=== PATIENT | female | born 1935 | race Caucasian/White ===

== ENCOUNTER → 2017-09-08 10:58 | Day surgery (SDC) | payer MEDICARE, OTHER, SELFPAY ==
[2017-09-05 09:28] VITALS: BMI 28.9
--- NOTE | 2017-09-08 11:49 | PCM.OP.BLANK ---
Operative Report Date of Procedure: 09/08/17 DC cardioversion 82-year-old lady with a history of coronary artery disease atrial fibrillation/ flutter on anticoagulation who developed recurrent atrial flutter. Patient was brought to the cardiac catheterization lab in the noninvasive suite. After appropriate informed consent was obtained the patient was also seen by Dr. García of the critical care division. Appropriate consultation was sought. Patient was administered 40 mg of intravenous propofol. Anterior posterior pads were applied and 200 J of synchronized DC cardioversion energy were applied with prompt reversal to sinus rhythm. Patient tolerated the procedure well. Postoperative EKG demonstrated normal sinus rhythm with a rate of 59 bpm. Conclusion Succesful DC cardioversion from atrial fibrillation. Continue beta-jeff Continue channel jeff Continue amiodarone
--- NOTE | 2017-09-08 12:02 | PCM.OP.BLANK ---
Operative Report Date of Procedure: 09/08/17 CONSCIOUS SEDATION REPORT DATE OF SERVICE: September 08, 2017 BRIEF HISTORY OF PRESENT ILLNESS: The patient is an 82-year-old female who presents to [facility] for elective outpatient cardioversion due to underlying atrial fibrillation. The patient's last surface echocardiogram revealed an ejection fraction of approximately 40%. The patient did undergo a prior cardioversion in January 2017, during which time 40 mg of propofol was utilized to achieve an appropriate level of sedation. PHYSICAL EXAMINATION: VITAL SIGNS: Reviewed and were acceptable. GENERAL: The patient is an elderly female, in no apparent distress, speaking in full sentences. HEENT: Normocephalic, atraumatic. Mucous membranes are moist and pink. Good mouth opening noted. Trachea is midline. Good neck mobility. CHEST: S1, S2 irregularly irregular. No murmurs, rubs or gallops were noted. LUNGS: Clear to auscultation bilaterally without appreciable wheezes, rales or rhonchi. ABDOMEN: Soft, nontender, nondistended. Positive bowel sounds. EXTREMITIES: There is no clubbing, cyanosis or edema. ASA Class: II DESCRIPTION OF PROCEDURE: After confirmation of informed consent, the patient's anesthesia plan was reviewed in detail. Propofol was chosen. Risks and benefits were reviewed and the patient agreed to proceed. At 1143, the patient was given 40 mg of propofol. The patient achieved an appropriate level of sedation and was given a 200 joule synchronized cardioversion by Dr. Harris at the bedside. This was successful in achieving normal sinus rhythm. The patient was monitored until 1153, at which time she reached her baseline mental status and function. The patient tolerated the procedure well. COMPLICATIONS: None ESTIMATED BLOOD LOSS: None RECOMMENDATIONS: Okay to recover in usual fashion. Code Visit 9xxxx: Other Procedure See Report
== END ==
PROVIDERS: Family Provider Family Medicine; PCP Family Medicine; Visit Provider Internal Medicine Cardiovascular Disease
DX: I48.0 Paroxysmal atrial fibrillation (principal); I48.92 Unspecified atrial flutter; I25.10 Atherosclerotic heart disease of native coronary artery without angina pectoris; I12.9 Hypertensive chronic kidney disease with stage 1 through stage 4 chronic kidney disease, or unspecified chronic kidney disease; N18.9 Chronic kidney disease, unspecified; Z87.19 Personal history of other diseases of the digestive system; Z85.3 Personal history of malignant neoplasm of breast; Z86.2 Personal history of diseases of the blood and blood-forming organs and certain disorders involving the immune mechanism; Z96.652 Presence of left artificial knee joint; Z98.61 Coronary angioplasty status; Z95.828 Presence of other vascular implants and grafts; Z79.01 Long term (current) use of anticoagulants; Z79.899 Other long term (current) drug therapy
CPT/HCPCS: 92960; 93005; J7040

== ENCOUNTER 2017-12-24 09:32 | Emergency (ER) | payer MEDICARE, OTHER, SELFPAY ==
[2017-12-24] VITALS (12 sets, daily range): BP systolic 123–176; BP diastolic 71–118; PULSE 52–121; RESP 12–23; TEMP 36.4; O2SAT 94–100; BMI 29.0
--- NOTE | 2017-12-24 09:44 | ED.DCSUM_ITS ---
History of Present Illness Chief Complaint: Palpitations Informant: Patient Onset: Yesterday - PM Context: Sudden Onset Timing: Continuous Quality: racing/skipping Location: chest Current Severity: Gone Maximum Severity: Moderate Worsened by: nothing Relieved by: nothing Associated Symptoms: lightheadeness episodically. No chest discomfort or sob or syncope. Narrative: States she usually feels when she is in atrial fibrillation, similar to what she fell last night. She has been cardioverted she thinks 3 times out of atrial fibrillation and has had a cardiac radiofrequency ablation for that, in addition to currently being on amiodarone and Xarelto, and Cardizem, she took them all today. She does not feel palpitations, racing, or lightheadedness right now. She states she feels okay but she knows she is having a fast heart rate because she checks her pulse and right before she left to come to ER, it was 120. Prior similar symptoms: Yes - Past Medical History (1) Iron deficiency anemia Status: Chronic (2) Atrial fibrillation Status: Chronic (3) Coronary artery disease Status: Chronic Comment: Status post stent (4) History of cancer of left breast Status: Chronic (5) History of cardiac radiofrequency ablation Status: Chronic Comment: 12/31/13 EP study,SVT ablation, pulmonary vein isolation per Dr. Mazariegos @ [facility]; 06/22/2014 EP and atrial flutter ablation and PV isolation per Dr. Mazariegos @ [facility] (6) Hypertension Status: Chronic (7) Stented coronary artery Status: Chronic Comment: PTCA and ALEXIS of LAD @ [place] per Dr. Grover Richard 02/19/2010; 50% stenosis of left cx Past Medical History - Allergies and Home Meds Allergies/Adverse Reactions: Allergies etodolac Allergy (Verified 12/24/17 09:36) Unknown hydrocodone [From Vicodin] Allergy (Verified 12/24/17 09:36) CONFUSION codeine Adverse Reaction (Verified 12/24/17 09:36) Nausea/Vom/Diarrhea Home Medications: Home Medications Medication Instructions Recorded Atorvastatin Calcium 20 mg PO DAILY 01/24/17 Brimonidine Tartrate/Timolol 1 drp EACH EYE BID 01/24/17 [Combigan Eye Drops] Calcium Carbonate/Vitamin D3 1 ea PO DAILY 01/24/17 [Caltrate 600 Plus D3 Tablet] Latanoprost 0.005% [Xalatan 1 drp EACH EYE DAILY 01/24/17 Opthalmic] Multivit-Min/Iron/Folic/Lutein 1 ea PO DAILY 01/24/17 [Centrum Silver Women Tablet] Acetaminophen [Tylenol Tablet] 650 mg PO Q6H PRN PRN tab 01/27/17 Amiodarone HCl [Cordarone] 200 mg PO DAILY #30 tab 01/27/17 Furosemide [Lasix] 20 mg PO DAILY PRN 08/29/17 diltiazem ER 120 mg 120 mg PO .q day cap 09/03/17 capsule,extended release 12 hr rivaroxaban 20 mg tablet 20 mg PO QDAY 09/03/17 metoprolol tartrate 50 mg tablet 50 mg PO BID #180 tab 10/06/17 Primary Care Physician: Dillon Salgado MD [Primary Care Provider] - Surgical History: herniorrhaphy, total knee arthroplasty Smoking Status: Never smoker - Family History Maternal Family History: Family History (Last Reviewed 10/23/17 @ 11:03 by Shelton Harris MD) Father No family history of coronary artery disease Family History: Reports: No pertinent history Paternal Family History: Family History (Last Reviewed 10/23/17 @ 11:03 by Shelton Harris MD) Father No family history of coronary artery disease Family History: Reports: No pertinent history Review of Systems All systems negative except as indicated General: Reports: - - Intermittent lightheadedness Cardiovascular: Reports: Palpitations, Heart racing Musculoskeletal: Reports: Swelling - Bilateral lower extremity, chronic, stable Physical Exam Vital Signs/Narrative: Vital Signs Temp Pulse Resp BP Pulse Ox 12/24/17 09:33 97.6 F L 121 H 18 157/99 H 94 General: Well nourished, Well developed, - - well-appearing, nad. Conversive. Head: Normocephalic, Atraumatic Eyes: Perrl, EOMI ENT: Moist mucous membranes, No rhinorrhea Neck: Supple, Nontender, No JVD Cardiovascular: Regular rhythm, No murmurs, Tachycardia Respiratory: No distress, CTA bilaterally, Chest nontender Abdomen: Soft, Nontender, Nondistended, Normal bowel sounds Back: Nontender, Normal Inspection Extremities: Nontender, Edema - Trace bilateral lower extremity, symmetric Skin: Normal color, No rash Neurological: Alert, Oriented x3, Cranial nerves II-XII grossly intact, Normal Strength, Normal Sensation, Normal Gait Psychological: Normal affect Diagnostic/Tx/Re-eval - Rhythm Strip Rhythm Strip: Sinus Tach Rate: 120 Ectopy: None - EKG 1 Interpretation: No Acute Injury Pattern, Sinus Tachycardia - 120, - - narrow QRS. borderline 1st degree AVB. post cardioversion Interpretation: Sinus Rhythm - 56, No Acute Injury Pattern - Medical Decision Making Since the patient has had episodes of atrial flutter in the past, looking at her initial EKG that appeared to show sinus tachycardia with a borderline prolonged MO interval, I discussed with the patient my recommendation to administer adenosine to see if she was in an atypical a flutter or if this was some different type of supraventricular tachycardia. She was amenable after we discussed this, she was given 6 mg adenosine bolus, she tolerated it well and it appeared to show sinus tachycardia. It was definitely not a flutter. She went back to a tachycardia at 120 and basically did not change this rate throughout her ER visit, despite giving her 1 dose of metoprolol 5 mg, and a liter of IV fluid as she had been n.p.o. all morning. Basic workup showed no abnormal labs, her renal insufficiency was actually better than recent, and her chest x-ray unremarkable. A loop recorder was noted. I discussed with Dr. Harris who came and evaluated the rhythm strip, EKG, and patient. We agreed that this could be some type of atrial tachycardia. He advised cardioverting her electrically. The patient was amenable to this. This went without complication and was completely successful in cardioverting her to a sinus rhythm at 56. She feels better. She recovered from etomidate 10 mg without difficulty. She is stable for discharge home and will follow up with Dr. Harris as an outpatient. Procedures Procedure(s): 1. --Procedural sedation. N.p.o. over 6 hours. Etomidate 10 mg. Nasal cannula and manager cardiac cath in place during entire procedure. Recovered without complication/event. 2. --Electric cardioversion. Synchronized cardioversion performed with 200 J synchronized energy. Performed ?1. Critical care time (excluding procedures): Not including procedures - 32 min ED Disposition - Plan for ED Patient: Disposition: Home or Assisted Living Chief Complaint: Palpitations Diagnosis: Atrial tachycardia Instructions: ED Tachycardia Pat PSVT Referrals: Shelton Harris MD [STAFF PHYSICIAN] - 1 Week
--- NOTE | 2017-12-24 10:00 | EKG12_ITS ---
Test Reason : PALPS Blood Pressure : / mmHG Vent. Rate : 120 BPM Atrial Rate : 120 BPM P-R Int : 192 ms QRS Dur : 094 ms QT Int : 330 ms P-R-T Axes : 000 052 001 degrees QTc Int : 466 ms Sinus tachycardia Nonspecific ST abnormality Abnormal ECG Confirmed by VLADIMIR CAMACHO, MAILE ([id number]), editorial specialist SNOW VANCE ([id number]) on 12/26/2017 1:27:54 PM Referred By: TANK Confirmed By:MAILE GILBERT MD
[2017-12-24 10:13] LABS: Absolute Lymphocyte Count 0.75 X10^3/ul (0.83-4.51); Absolute Neutrophil Count 6.8 X10^3/uL (2.0-7.7); Basophil# 0.02 X10^3/uL; Basophil% 0.2 % (0-1); Eosinophil# 0.03 X10^3/uL; Eosinophils% 0.4 % (0-5); Hemoglobin 14.2 g/dl (12.0-15.0); Lymphocyte # 0.75 X10^3/ul (4.0); Lymphocyte % 9.2 % (19-41); Mean Corpuscular Hgb 31.6 pg (27.0-32.0); Mean Corpuscular Volume 95.6 fL (81-99); Mean Platelet Vol. 11.1 fl (6.2-12.0); Monocyte# 0.63 X10^3/uL; Monocyte% 7.7 % (0-10); Neutrophil # 6.75 X10^3/uL (2.7-7.7); Neutrophil % 82.4 % (47-70); POSITIVE COUNT NO; POSITIVE DIFFERENTIAL NO; POSITIVE MORPHOLOGY NO; Platelet Count 236 K/mm3 (150-450); RBC Distribution Width CV 16.5 % (11.6-14.6); RBC Distribution Width SD 56.4 fl (35.1-43.9); White Blood Count 8.2 K/mm3 (4.4-11.0)
[2017-12-24 10:21] LABS: Anion Gap 7 (5-15); BUN 18 mg/dL (7-18); BUN/Creat Ratio 14.8 RATIO (10-20); Calcium,Total 9.4 mg/dL (8.5-10.1); Chloride 98 mmol/L (98-107); Creatinine, Serum 1.22 mg/dL (0.55-1.02); EST Glomerular Filtration Rate 45 mL/min (>60); Est Glom Filt Rate - Afr Amer 55 mL/min (>60); Estimated Creatinine Clearance 35.77 ml/min; Glucose 129 mg/dL (74-106); Potassium 4.1 mmol/L (3.5-5.1); Sodium Level 134 mmol/L (136-145)
[2017-12-24] MEDS: Adenosine 6 MG/2 ML Syringe IV (10:22)
--- NOTE | 2017-12-24 10:45 | EKGRS_ITS ---
Test Reason : REPEAT Blood Pressure : / mmHG Vent. Rate : 056 BPM Atrial Rate : 056 BPM P-R Int : 222 ms QRS Dur : 088 ms QT Int : 470 ms P-R-T Axes : 077 023 020 degrees QTc Int : 453 ms Sinus bradycardia with 1st degree A-V block Nonspecific ST abnormality Abnormal ECG Confirmed by VLADIMIR CAMACHO, MAILE ([id number]), script editor SNOW VANCE ([id number]) on 12/26/2017 1:30:00 PM Referred By: TANK Confirmed By:MAILE GILBERT MD
--- NOTE | 2017-12-24 10:52 | NURSING ---
128 OBS CP ASHELFAH
--- NOTE | 2017-12-24 11:03 | RAD_ITS ---
STUDY: X-RAY CHEST REASON FOR EXAM: Female, 82 years old. A. Fib. Fatigue. TECHNIQUE: PA and lateral views of the chest. COMPARISON: May 28, 2017 and August 29, 2017 FINDINGS: The lungs remain hyperinflated. There is no new focal consolidation. There are stable prominent interstitial markings present. There are EKG leads overlying the thorax. There is stable mild cardiomegaly. There is a hiatal hernia present. Normal visualized pulmonary arteries. Normal visualized aortic arch and descending thoracic aorta. There is demineralization of the osseous structures. The bones are diffusely demineralized. Normal visualized ribs, clavicles, and shoulders. There are surgical clips within the left axilla. There is no demonstrated abnormality of the visualized soft tissue structures of the upper abdomen. RAD/Chest PA and Lateral IMPRESSION: Stable examination demonstrating no acute cardiopulmonary process. Electronically Signed: Annabel Mahoney MD at 12:17 EDT Tel , Service support ,
[2017-12-24 11:26] LABS: Bacteria 0 SEEN /hpf (None Seen); Mucous, Urine 0 SEEN /hpf (<or=2+); Squamous Epithelial Cells - UA 0 SEEN /hpf (5-10); White Blood Cells 0 SEEN /hpf (0-5)
[2017-12-24] MEDS: Metoprolol Tartrate 5 MG/5 ML Vial IV (11:33)
[2017-12-24 11:35] LABS: Color, Urine Yellow (Yellow); Glucose, Dipstick Normal (Normal); Ketone-Dipstick Negative (Negative); Leukocyte Esterase-Dipstick Negative /ul (Negative); Nitrite-Dipstick Negative (Negative); Occult Blood-Urine 25 /ul (Negative); Protein-Dipstick Negative (Negative); Specific Gravity, Urine 1.015 (1.002-1.030); Urine Bilirubin Dipstick Negative (Negative); Urine Clarity Clear (Clear); Urine Urobilinogen Normal (Normal)
[2017-12-24 11:40] LABS: Red Blood Cells-Urine 0-5 SEEN /hpf (0-5)
== END 2017-12-24 14:00 | disposition home or self-care (01) ==
PROVIDERS: Emergency Provider Emergency Medicine; Family Provider Family Medicine; PCP Family Medicine
DX: I47.1 Supraventricular tachycardia (principal); M79.89 Other specified soft tissue disorders; D50.9 Iron deficiency anemia, unspecified; I48.91 Unspecified atrial fibrillation; I25.10 Atherosclerotic heart disease of native coronary artery without angina pectoris; I10 Essential (primary) hypertension; N28.9 Disorder of kidney and ureter, unspecified; Z85.3 Personal history of malignant neoplasm of breast; Z98.890 Other specified postprocedural states; Z95.5 Presence of coronary angioplasty implant and graft; Z79.899 Other long term (current) drug therapy
CPT/HCPCS: 36591; 71046; 80048; 81001; 85025; 93005; 96361; 96374; 96375; 99285; J7030; J7040; A4216; J0153

== ENCOUNTER → 2018-04-02 10:49 | Outpatient (CLI) | payer MEDICARE, OTHER, SELFPAY | PROVIDERS: Family Provider Family Medicine; PCP Family Medicine; Visit Provider Internal Medicine Cardiovascular Disease | DX: I48.0 Paroxysmal atrial fibrillation (principal) | CPT/HCPCS: 93306 ==

== ENCOUNTER 2018-04-16 11:50 | Emergency (ER) | payer MEDICARE, OTHER, SELFPAY ==
[2018-04-16 11:51] VITALS: BP 165/101; PULSE 117; RESP 17; TEMP 36.1; O2SAT 95; BMI 29.3
--- NOTE | 2018-04-16 12:07 | EKG12_ITS ---
Test Reason : PALPS Blood Pressure : / mmHG Vent. Rate : 113 BPM Atrial Rate : 113 BPM P-R Int : 190 ms QRS Dur : 098 ms QT Int : 360 ms P-R-T Axes : 000 073 031 degrees QTc Int : [address] depression, consider subendocardial injury Abnormal ECG Confirmed by NESSA ABRAMS ([id number]), editor map SNOW VANCE ([id number]) on 04/21/2018 2:35:02 PM Referred By: CURLY Confirmed By:NESSA ABRAMS
[2018-04-16] MEDS: 0.9% Normal Saline 1,000 ML 1000 ML IV (12:25)
[2018-04-16 12:33] LABS: Absolute Lymphocyte Count 0.65 X10^3/ul (0.83-4.51); Absolute Neutrophil Count 5.5 X10^3/uL (2.0-7.7); Basophil# 0.02 X10^3/uL; Basophil% 0.3 % (0-1); Eosinophil# 0.02 X10^3/uL; Eosinophils% 0.3 % (0-5); Hematocrit 41.2 % (37-47); Hemoglobin 13.4 g/dl (12.0-15.0); Lymphocyte # 0.65 X10^3/ul (4.0); Lymphocyte % 9.7 % (19-41); Mean Corp Hgb Conc 32.5 g/gl (32-36); Mean Corpuscular Hgb 31.4 pg (27.0-32.0); Mean Corpuscular Volume 96.5 fL (81-99); Mean Platelet Vol. 10.8 fl (6.2-12.0); Monocyte# 0.49 X10^3/uL; Monocyte% 7.3 % (0-10); Neutrophil % 82.4 % (47-70); POSITIVE COUNT NO; POSITIVE DIFFERENTIAL NO; POSITIVE MORPHOLOGY NO; Platelet Count 211 K/mm3 (150-450); RBC Distribution Width CV 15.4 % (11.6-14.6); RBC Distribution Width SD 53.9 fl (35.1-43.9); Red Blood Count 4.27 M/mm3 (4.2-5.4); White Blood Count 6.7 K/mm3 (4.4-11.0)
--- NOTE | 2018-04-16 12:51 | ED.DCSUM_ITS ---
- ER Visit Summary Date of Service: 04/16/18 Chief Complaint: Elevated pulse History of Present Illness: The patient is a 82 F with history of atrial fibrillation presents to the emergency department with elevated pulse. Patient is on Xarelto [place] regulation. She states last night, she felt as if her pulse was elevated. She did not document a pulse, but when she took it, did feel high. She states it happened again today. She states it was in the 1 teens. She denies chest pain or shortness of breath. She states that she has had atrial fibrillation and required cardioversion before in the past. She denies any fevers or chills. She denies any chest pain or trouble breathing. She has been compliant with her medications. She states that just over a month ago, her metoprolol dose was decreased because she was having bradycardia. Physical Examination: Vital signs reviewed General: Well-nourished, well-developed Head: Normocephalic, atraumatic Eyes: Pupils equal and reactive, extraocular muscles intact Neck, supple, no lymphadenopathy Heart: Regular rate and rhythm Respiratory: No distress, clear bilaterally Abdomen: Soft, nontender, nondistended, no peritoneal signs Back: Nontender Extremities: Nontender, no edema, no cords Skin: Normal color no rash Neuro: Alert and oriented, no focal or lateralizing deficits Test Results: [] Emergency Department Course and Treatment: EKG was done on patient arrival. It does show sinus tachycardia. There is no evidence of atrial fibrillation or rapid ventricular response. There was no acute ischemic change. IV was established. Patient was given IV fluids. I did obtain screening labs which are unremarkable. With reviewing the patient's medications, she did have her metoprolol dose decreased recently. I do suspect that may be the underlying cause of her tachycardia. She was given IV metoprolol and had decrease of her rate into the 90s. Again, this was a sinus rhythm. I had made attempts to discuss this with her knitting machine mechanic. At this time, I do feel that the most appropriate thing would be to increase her metoprolol dose at least at night until she can be seen as an outpatient. She is comfortable this plan of care. She has no chest pain. She is no dyspnea. She wants to attempt outpatient therapy and I feel this is reasonable. Treatment Plan: [] Disposition: Discharge Impression: Tachycardia This note was generated with tibditation software. It may contain incorrect words, spelling, and punctuation that were not noted in review of the chart prior to signing ED Disposition - Plan for ED Patient: Chief Complaint: Palpitations Instructions: ED Palpitations Referrals: Shelton Harris MD [STAFF PHYSICIAN] -
[2018-04-16 12:57] LABS: ALB/GLOB Ratio 0.8 RATIO (0.9-2.4); AST(SGOT) 18 U/L (15-37); Alanine Aminotransfer ALT/SGPT 22 U/L (13-56); Albumin, Serum 3.5 g/dL (3.2-5.0); Alkaline Phosphatase 91 U/L (45-117); Anion Gap 10 (5-15); BUN 22 mg/dL (7-18); BUN/Creat Ratio 21.2 RATIO (10-20); Calcium,Total 8.8 mg/dL (8.5-10.1); Chloride 101 mmol/L (98-107); Creatinine, Serum 1.04 mg/dL (0.55-1.02); EST Glomerular Filtration Rate 54 mL/min (>60); Est Glom Filt Rate - Afr Amer 65 mL/min (>60); Estimated Creatinine Clearance 43.52 ml/min; Globulin 4.5 g/dL (2.2-4.2); Glucose 120 mg/dL (74-106); Potassium 4.1 mmol/L (3.5-5.1); Sodium Level 137 mmol/L (136-145)
[2018-04-16] MEDS: Metoprolol Tartrate 5 MG/5 ML Vial IV (13:27)
[2018-04-16 13:28] VITALS: BP 183/114; PULSE 112; RESP 18; O2SAT 97
[2018-04-16 15:02] VITALS: BP 129/74; PULSE 62; RESP 16; O2SAT 97
== END 2018-04-16 15:03 | disposition home or self-care (01) ==
LOC: ED 12:25
PROVIDERS: Emergency Provider Emergency Medicine; Family Provider Family Medicine; PCP Family Medicine
DX: R00.2 Palpitations (principal); R00.0 Tachycardia, unspecified; I48.91 Unspecified atrial fibrillation; I25.10 Atherosclerotic heart disease of native coronary artery without angina pectoris; I10 Essential (primary) hypertension; E78.00 Pure hypercholesterolemia, unspecified; Z79.01 Long term (current) use of anticoagulants; Z79.899 Other long term (current) drug therapy
CPT/HCPCS: 80053; 84484; 85025; 93005; 96361; 96374; 99284; A4216

== ENCOUNTER → 2018-06-09 09:02 | Outpatient (CLI) | payer MEDICARE, OTHER, SELFPAY ==
[2018-06-09 10:22] LABS: International Normalized Ratio 1.4; Prothrombin Time (Protime)PT. 17.2 SECONDS (11.7-14.9)
[2018-06-09 10:25] LABS: Anion Gap 6 (5-15); BUN 25 mg/dL (7-18); BUN/Creat Ratio 21.2 RATIO (10-20); Calcium,Total 8.5 mg/dL (8.5-10.1); Chloride 100 mmol/L (98-107); Creatinine, Serum 1.18 mg/dL (0.55-1.02); EST Glomerular Filtration Rate 47 mL/min (>60); Est Glom Filt Rate - Afr Amer 57 mL/min (>60); Glucose 98 mg/dL (74-106); Potassium 4.5 mmol/L (3.5-5.1); Sodium Level 137 mmol/L (136-145)
== END ==
PROVIDERS: Family Provider Family Medicine; PCP Family Medicine; Referring Provider Nurse Practitioner Family; Visit Provider Nurse Practitioner Family
DX: I48.91 Unspecified atrial fibrillation (principal)
CPT/HCPCS: 36415; 80048; 85610

== ENCOUNTER → 2018-11-05 14:32 | Outpatient (CLI) | payer MEDICARE, OTHER, SELFPAY ==
[2018-08-18 11:10] VITALS: BMI 29.3
[2018-11-05 15:31] LABS: Anion Gap 5 (5-15); BUN 26 mg/dL (7-18); BUN/Creat Ratio 22.2 RATIO (10-20); Calcium,Total 8.7 mg/dL (8.5-10.1); Chloride 103 mmol/L (98-107); Creatinine, Serum 1.17 mg/dL (0.55-1.02); EST Glomerular Filtration Rate 47 mL/min (>60); Est Glom Filt Rate - Afr Amer 57 mL/min (>60); Glucose 104 mg/dL (74-106); Potassium 4.6 mmol/L (3.5-5.1); Sodium Level 140 mmol/L (136-145)
== END ==
PROVIDERS: Family Provider Family Medicine; PCP Family Medicine; Referring Provider Internal Medicine Cardiovascular Disease; Visit Provider Internal Medicine Cardiovascular Disease
DX: I48.91 Unspecified atrial fibrillation (principal); I48.92 Unspecified atrial flutter
CPT/HCPCS: 36415; 80048

== ENCOUNTER 2018-11-09 10:36 | Day surgery (SDC) | payer MEDICARE, OTHER, SELFPAY ==
[2018-08-18 11:10] VITALS: BMI 29.3
[2018-11-06 09:57] VITALS: BMI 29.3
--- NOTE | 2018-11-09 09:55 | PCM.HP.BLA ---
Problem List (1) Atrial flutter Status: Chronic History and Physical Date of Admission: 11/09/18 HPI Details: YAEL TRIPP, is a 83 F who presents today for a scheduled cardioversion. She had called our office on 11/03 with concerns over palpitations. She was noted to be in atrial flutter with a HR of 116. Her metoprolol was increased to 100 mg BID. As she has been on a factor Xa, she was scheduled for a cardioversion today. She has a history of coronary artery disease status post angioplasty and stenting of a high-grade lesion in her LAD in 2009, atrial fibrillation status post cardioversion and ablation in December 2013, NITHYA cardioversion in January 2017, May 2017, and August 2017. Patient was being set up for a repeat cardioversion in June 2018. Her pre-evaluation EKG showed a sinus bradycardia and thus the cardioversion was canceled. She is aware of her faster HR with being slightly more SOB. She also notes that her HR is higher on her BP monitor. Intake Vital Signs: see hospital documentation Allergies etodolac Allergy (Verified 08/18/18 11:20) Nausea hydrocodone [From Vicodin] Allergy (Verified 08/18/18 11:20) CONFUSION codeine Adverse Reaction (Verified 08/18/18 11:20) Nausea/Vom/Diarrhea Medications Atorvastatin Calcium 20 mg PO DAILY 01/24/17 [History Confirmed 08/18/18] Brimonidine Tartrate/Timolol [Combigan Eye Drops] 1 drp EACH EYE BID 01/24/17 [History Confirmed 08/18/18] Calcium Carbonate/Vitamin D3 [Caltrate 600 Plus D3 Tablet] 1 tab PO DAILY 01/24/17 [History Confirmed 08/18/18] Latanoprost 0.005% [Xalatan Opthalmic] 1 drp EACH EYE DAILY 01/24/17 [History Confirmed 08/18/18] Multivit-Min/Iron/Folic/Lutein [Centrum Silver Women Tablet] 1 tab PO DAILY 01/24/17 [History Confirmed 08/18/18] furosemide 20 mg tablet 20 mg PO DAILY PRN #90 tab 03/31/18 [Rx Confirmed 08/18/18] diltiazem CD 120 mg capsule,extended release 24 hr 120 mg PO DAILY #90 cap 04/03/18 [Rx Confirmed 08/18/18] Rivaroxaban [Xarelto] 20 mg PO QDAY 04/16/18 [History Confirmed 08/18/18] amiodarone 200 mg tablet 200 mg PO DAILY #90 tab 05/05/18 [Rx Confirmed 08/18/18] metoprolol tartrate 75 mg tablet 75 mg PO BID #60 tab 08/18/18 [Rx Confirmed 08/18/18] Ejection fraction %: 55 to 59 PFSH Medical History Atrial flutter (Chronic) History of cancer of left breast (Chronic) Atrial fibrillation (Chronic) Atherosclerotic heart disease of [place] coronary artery without angina pectoris (Chronic) Acute bronchitis (Acute) Pharyngitis, acute (Acute) Atrial fibrillation with RVR (Acute) Hypertension (Chronic) Atrial fibrillation and flutter (Chronic) Coronary artery disease (Chronic) Microcytic anemia (Acute) Iron deficiency anemia (Chronic) History of breast cancer (Chronic) Palpitations (Chronic) Arthritis (Chronic) Surgical History History of cardiac radiofrequency ablation (Chronic) Stented coronary artery (Chronic) History of left heart catheterization (Chronic) History of left knee replacement (Chronic) History of loop recorder (Chronic) History of lumpectomy of left breast (Chronic) History of hernia repair (Resolved) History of left hip replacement (Resolved) History of right knee joint replacement (Resolved) Family History Father No family history of coronary artery disease Social History Smoking Status: Never smoker alcohol intake: current alcohol intake frequency: holidays/special occasions only Alcohol type: wine caffeine: Yes Type: coffee Number of servings: 1 ROS Const Const: Negative for fatigue, weakness, body ache, fever(s) or chills ENT ENT: Negative for dizziness Cardio Chest Pain: No Palpitations: yes Edema: None Muscle aches with walking: None Resp Respiratory: Negative for SOB with activity, SOB at rest, SOB orthopnea\SOB lying down or paroxysmal nocturnal dyspnea GI GI: Negative nausea, black,tarry stools, bright, red blood in stools or vomiting blood/hematemesis : Negative for hematuria or frequent nighttime urination/ nocturia Musc Musc: Negative for muscle aches/ myalgia Skin Skin: Negative non-healing lesions or rash Neuro Neuro: Negative for weakness, dizziness, lightheadedness, near syncope, syncope or orthostatic symptoms Endo Endo: Negative for fatigue Allergy Allergy/Immunology: Negative for rash Cardiology Exam Const Appearance: cooperative, healthy appearing, comfortable and no acute distress Nutritional Appearance: average body habitus and well nourished Orientation: alert, awake and oriented x3 Head Head: normal to inspection Ears: hearing grossly normal bilaterally Nose: external nose normal Face and Sinus: face symmetric Mouth: oral mucosae normal Eyes General: appearance normal, both eyes and all related structures Eyelids: eyelids normal EOM: EOM intact bilaterally Neck Neck: no JVD and normal visual inspection Carotids: normal carotid upstroke Chest Chest inspection: normal inspection of the chest and normal respiratory effort; negative cough Auscultation: Bilateral: Clear to Auscultation Cardio Rate: tachycardic Rhythm: irregularly irregular Heart sounds: S1 normal, S2 normal and normal, physiologic split S2; negative rub, gallop or murmur GI GI: normal to inspection Neuro General: alert, awake, oriented x3 and CN's II-XI intact bilaterally Skin Skin: no rashes or lesions noted Extremities Pulses: Normal: Right Posterior Tibial Pulse, Left Posterior Tibial Pulse, Right Radial Pulse, Left Radial Pulse Lower Extremity Edema: None: Bilateral Psych Psychological: normal affect Assessment & Plan 1. Paroxysmal atrial fibrillation I48.0 She will undergo a cardioversion today, she will follow up next week in the office for a repeat EKG. 2. Atherosclerosis of [place] coronary artery of [place] heart without angina pectoris I25.10 PTCA and ALEXIS of LAD @ [place] per Dr. Grover Richard 02/19/2010; 50% stenosis of left cx Her heart catheterization February 2010 resulted in angioplasty and stenting to her LAD and showed LCx with mild disease. Her echocardiogram in March 2018 showed improved ejection fraction of 55%. We will continue to monitor this. We will not make any medication regimen changes and will continue risk factor modification. 3. Essential hypertension I10 We will continue to monitor this. We will not make any medication regimen changes.
--- NOTE | 2018-11-09 10:03 | HP.PCM_ITS ---
Problem List (1) Atrial flutter Status: Chronic History and Physical Date of Admission: 11/09/18 HPI Details: YAEL TRIPP, is a 83 F who presents today for a scheduled cardioversion. She had called our office on 11/03 with concerns over palpitations. She was noted to be in atrial flutter with a HR of 116. Her metoprolol was increased to 100 mg BID. As she has been on a factor Xa, she was scheduled for a cardioversion today. She has a history of coronary artery disease status post angioplasty and stenting of a high-grade lesion in her LAD in 2009, atrial fibrillation status post cardioversion and ablation in December 2013, NITHYA cardioversion in January 2017, May 2017, and August 2017. Patient was being set up for a repeat cardioversion in June 2018. Her pre- evaluation EKG showed a sinus bradycardia and thus the cardioversion was canceled. She is aware of her faster HR with being slightly more SOB. She also notes that her HR is higher on her BP monitor. Intake Vital Signs: see hospital documentation Allergies etodolac Allergy (Verified 08/18/18 11:20) Nausea hydrocodone [From Vicodin] Allergy (Verified 08/18/18 11:20) CONFUSION codeine Adverse Reaction (Verified 08/18/18 11:20) Nausea/Vom/Diarrhea Medications Atorvastatin Calcium 20 mg PO DAILY 01/24/17 [History Confirmed 08/18/18] Brimonidine Tartrate/Timolol [Combigan Eye Drops] 1 drp EACH EYE BID 01/24/17 [History Confirmed 08/18/18] Calcium Carbonate/Vitamin D3 [Caltrate 600 Plus D3 Tablet] 1 tab PO DAILY 01/24/17 [History Confirmed 08/18/18] Latanoprost 0.005% [Xalatan Opthalmic] 1 drp EACH EYE DAILY 01/24/17 [History Confirmed 08/18/18] Multivit-Min/Iron/Folic/Lutein [Centrum Silver Women Tablet] 1 tab PO DAILY 01/24/17 [History Confirmed 08/18/18] furosemide 20 mg tablet 20 mg PO DAILY PRN #90 tab 03/31/18 [Rx Confirmed 08/18/18] diltiazem CD 120 mg capsule,extended release 24 hr 120 mg PO DAILY #90 cap 04/03/18 [Rx Confirmed 08/18/18] Rivaroxaban [Xarelto] 20 mg PO QDAY 04/16/18 [History Confirmed 08/18/18] amiodarone 200 mg tablet 200 mg PO DAILY #90 tab 05/05/18 [Rx Confirmed 03/29] metoprolol tartrate 75 mg tablet 75 mg PO BID #60 tab 08/18/18 [Rx Confirmed 08/18/18] Ejection fraction %: 55 to 59 PFSH Medical History Atrial flutter (Chronic) History of cancer of left breast (Chronic) Atrial fibrillation (Chronic) Atherosclerotic heart disease of [place] coronary artery without angina pectoris (Chronic) Acute bronchitis (Acute) Pharyngitis, acute (Acute) Atrial fibrillation with RVR (Acute) Hypertension (Chronic) Atrial fibrillation and flutter (Chronic) Coronary artery disease (Chronic) Microcytic anemia (Acute) Iron deficiency anemia (Chronic) History of breast cancer (Chronic) Palpitations (Chronic) Arthritis (Chronic) Surgical History History of cardiac radiofrequency ablation (Chronic) Stented coronary artery (Chronic) History of left heart catheterization (Chronic) History of left knee replacement (Chronic) History of loop recorder (Chronic) History of lumpectomy of left breast (Chronic) History of hernia repair (Resolved) History of left hip replacement (Resolved) History of right knee joint replacement (Resolved) Family History Father No family history of coronary artery disease Social History Smoking Status: Never smoker alcohol intake: current alcohol intake frequency: holidays/special occasions only Alcohol type: wine caffeine: Yes Type: coffee Number of servings: 1 ROS Const Const: Negative for fatigue, weakness, body ache, fever(s) or chills ENT ENT: Negative for dizziness Cardio Chest Pain: No Palpitations: yes Edema: None Muscle aches with walking: None Resp Respiratory: Negative for SOB with activity, SOB at rest, SOB orthopnea\SOB lying down or paroxysmal nocturnal dyspnea GI GI: Negative nausea, black,tarry stools, bright, red blood in stools or vomiting blood/hematemesis : Negative for hematuria or frequent nighttime urination/ nocturia Musc Musc: Negative for muscle aches/ myalgia Skin Skin: Negative non-healing lesions or rash Neuro Neuro: Negative for weakness, dizziness, lightheadedness, near syncope, syncope or orthostatic symptoms Endo Endo: Negative for fatigue Allergy Allergy/Immunology: Negative for rash Cardiology Exam Const Appearance: cooperative, healthy appearing, comfortable and no acute distress Nutritional Appearance: average body habitus and well nourished Orientation: alert, awake and oriented x3 Head Head: normal to inspection Ears: hearing grossly normal bilaterally Nose: external nose normal Face and Sinus: face symmetric Mouth: oral mucosae normal Eyes General: appearance normal, both eyes and all related structures Eyelids: eyelids normal EOM: EOM intact bilaterally Neck Neck: no JVD and normal visual inspection Carotids: normal carotid upstroke Chest Chest inspection: normal inspection of the chest and normal respiratory effort; negative cough Auscultation: Bilateral: Clear to Auscultation Cardio Rate: tachycardic Rhythm: irregularly irregular Heart sounds: S1 normal, S2 normal and normal, physiologic split S2; negative rub, gallop or murmur GI GI: normal to inspection Neuro General: alert, awake, oriented x3 and CN's II-XI intact bilaterally Skin Skin: no rashes or lesions noted Extremities Pulses: Normal: Right Posterior Tibial Pulse, Left Posterior Tibial Pulse, Right Radial Pulse, Left Radial Pulse Lower Extremity Edema: None: Bilateral Psych Psychological: normal affect Assessment & Plan 1. Paroxysmal atrial fibrillation I48.0 She will undergo a cardioversion today, she will follow up next week in the office for a repeat EKG. 2. Atherosclerosis of [place] coronary artery of [place] heart without angina pectoris I25.10 PTCA and ALEXIS of LAD @ [place] per Dr. Grover Richard 02/19/2010; 50% stenosis of left cx Her heart catheterization February 2010 resulted in angioplasty and stenting to her LAD and showed LCx with mild disease. Her echocardiogram in March 2018 showed improved ejection fraction of 55%. We will continue to monitor this. We will not make any medication regimen changes and will continue risk factor modifi cation. 3. Essential hypertension I10 We will continue to monitor this. We will not make any medication regimen changes.
--- NOTE | 2018-11-09 13:16 | PCM.OP.PRO ---
Procedure Report Date of Procedure: 11/09/18 DC cardioversion. 83-year-old lady with a history of atrial tachyarrhythmia. Patient had been on anticoagulation for at least 3 weeks prior to this evaluation. Patient was seen by Dr. Poe of the critical care division. Informed consent was obtained. Anterior-posterior pads were applied. The patient was then administered 40 mg of intravenous propofol. 200 J of synchronized DC cardioversion energy were applied with prompt reversal to sinus rhythm. Postoperative EKG confirmed the same. Patient tolerated the procedure well. Conclusion: Successful DC cardioversion from atrial tachyarrhythmia to sinus rhythm. Plan continue current medical therapy.
--- NOTE | 2018-11-09 15:14 | PRO.PCM_ITS ---
Problem List (1) Atrial fibrillation and flutter Status: Chronic (2) Coronary artery disease Status: Chronic Comment: Status post stent (3) History of breast cancer Status: Chronic Comment: Status post lumpectomy (4) History of cancer of left breast Status: Chronic (5) History of cardiac radiofrequency ablation Status: Chronic Comment: 12/31/13 EP study,SVT ablation, pulmonary vein isolation per Dr. Mazariegos @ [facility]; 06/22/2014 EP and atrial flutter ablation and PV isolation per Dr. Mazariegos @ [facility] (6) History of left heart catheterization Status: Chronic Comment: 02/08/[address] Harris @ [facility]>PTCA and ALEXIS of LAD @ [place] (7) Hypertension Status: Chronic Qualifiers: Hypertension type: essential hypertension Qualified Code(s): I10 - Essential (primary) hypertension (8) Iron deficiency anemia Status: Chronic Procedure Report Date of Procedure: 11/09/18 - Conscious sedation CONSCIOUS SEDATION REPORT BRIEF HISTORY OF PRESENT ILLNESS: The patient is an 83-year-old female who presented to [facility] for an elective outpatient cardioversion due to underlying atrial fibrillation. The patient reports no PO intake since midnight. The patient does not have a history of obstructive sleep apnea. The patient reports no history of smoking and COPD. The patient denies any recent constitutional symptoms such as fevers, chills, nausea or vomiting. The patient denies previous anesthetic complications. Patient's last known ejection fraction was 55%. Patient did have a cardioversion by Dr. García on 09/08/2017 and this documentation was reviewed. PHYSICAL EXAMINATION: VITAL SIGNS: Reviewed and were acceptable. GENERAL: The patient is a female, in no apparent distress, speaking in full sentences. HEENT: Normocephalic, atraumatic. Mucous membranes are moist and pink. Good mouth opening noted. Trachea is midline. Good neck mobility. MP III CHEST: S1, S2 irregularly irregular. No murmurs, rubs or gallops were noted. LUNGS: Clear to auscultation bilaterally without appreciable wheezes, rales or rhonchi. ABDOMEN: Soft, nontender, nondistended. Positive bowel sounds. EXTREMITIES: There is no clubbing, cyanosis or edema. ASA Class: II DESCRIPTION OF PROCEDURE: After confirmation of informed consent, the patient's anesthesia plan was reviewed in detail. Propofol was chosen. Risks and benefits were reviewed and the patient agreed to proceed. At 1:06 PM, the patient was given 40 mg of propofol. The patient achieved an appropriate level of sedation and received 1 attempt synchronized cardioversion, at [address] Harris at the bedside. This was successful in achieving normal sinus rhythm. The patient was monitored until 1:14 PM, at which time the patient reached their baseline mental status and function. The patient tolerated the procedure well. COMPLICATIONS: None ESTIMATED BLOOD LOSS: None RECOMMENDATIONS: Okay to recover in usual fashion. Code Visit 9xxxx: Other Procedure See Report - 20199 -8 minutes conscious sedation
== END 2018-11-09 14:16 | disposition home or self-care (01) ==
LOC: CLSP 10:37
PROVIDERS: Family Provider Family Medicine; PCP Family Medicine; Referring Provider Internal Medicine Cardiovascular Disease; Visit Provider Internal Medicine Cardiovascular Disease
DX: I48.0 Paroxysmal atrial fibrillation (principal); I25.10 Atherosclerotic heart disease of native coronary artery without angina pectoris; I10 Essential (primary) hypertension; D50.9 Iron deficiency anemia, unspecified; M19.90 Unspecified osteoarthritis, unspecified site; Z85.3 Personal history of malignant neoplasm of breast; Z79.899 Other long term (current) drug therapy
CPT/HCPCS: 92960; 93005; J7040

== ENCOUNTER 2018-12-10 13:28 | Emergency (ER) | payer MEDICARE, OTHER, SELFPAY ==
[2018-11-06 09:57] VITALS: BMI 29.3
[2018-12-10 13:29] VITALS: BP 159/83; PULSE 52; RESP 16; TEMP 36.4; O2SAT 95; BMI 27.8
--- NOTE | 2018-12-10 14:07 | CT_ITS ---
STUDY: CT ABDOMEN AND PELVIS WITHOUT CONTRAST REASON FOR EXAM: Female, 83 years old. Pain RADIATION DOSAGE (If Supplied By Facility): DLP = ( 670.37 ) mGycm TECHNIQUE: Transaxial images were obtained from the dome of the diaphragm to the symphysis pubis without oral contrast, and without intravenous contrast. Sagittal and coronal images were reconstructed. Individualized dose optimization techniques were used for this CT. COMPARISON: None. FINDINGS: Evaluation of the abdominal viscera is limited in the absence of intravenous contrast. The visualized lung bases are clear. The visualized portions of the heart and pericardium are within normal limits. Gallstones are present. The liver demonstrates an unremarkable unenhanced appearance. The spleen is normal in size. The pancreas demonstrates an unremarkable unenhanced appearance. The adrenal glands are within normal limits. There are no obstructing renal stones. There is no hydronephrosis. There is a large ventral hernia. There is no bowel obstruction or inflammation. The appendix is not visualized, but there are no findings to suggest acute appendicitis. The aorta is normal in caliber. There is no abdominal or pelvic free air, free fluid, fluid collection or lymphadenopathy. There are no destructive osseous lesions. There is prominent disc space loss at the L4-L5 level with grade 2 spondylolisthesis. There is an age-indeterminate compression fracture of the T12 vertebral body. Left hip arthroplasty present. Ventral hernia repair present. CT/Abdomen/Pelvis without Cont IMPRESSION: No acute abdominal or pelvic pathology demonstrated on this noncontrast CT. Large ventral hernia. Cholelithiasis. Prominent degenerative changes with grade 2 spondylolisthesis at the L4-L5 level. Age-indeterminate compression fracture of the T12 vertebral body. Electronically Signed: Dillon López, at 16:37 EDT Tel , Service support ,
--- NOTE | 2018-12-10 14:12 | ED.DCSUM_ITS ---
- ER Visit Summary Date of Service: 12/10/18 Chief Complaint: [] Left-sided back pain since Easter problem History of Present Illness: The patient is a 83 F [] history of Xarelto related to A. fib A. fib that is been stable she indicates the day after [place] she got out of bed and since then she having pain to the left low back paralumbar area, the pain is persisted is worse when she walks and she moves she had no bowel or bladder complaints or changes, she is a history of chronic intermittent abdominal pain and nausea etiology which is unclear but she is been worked up as an outpatient for this. She went to see Dr. Tavera orthopedics office yesterday, she was seen by 1 of his assists by her history, the x-rays were done that showed arthritis DJD, she was started on prednisone punch pack she took prednisone punch pack yesterday that made her more nauseated it did not completely resolve her pain she presents to the emergency department complaining of persistent left-sided paralumbar back pain and worsening of her nausea. She is had decreased p.o. intake because of the nausea her bowel and bladder habits have been normal but notes sometimes having to strain to have a BM, but notes she did have bowel movements today and normal urinary habits, she has a chronic anterior abdominal wall umbilical hernia that is unchanged, again she is not in A. fib but she has history of paroxysmal A. fib so she is currently on Xarelto that limits her medication options Physical Examination: [] General, no distress resting comfortably HEENT is generally unremarkable The neck is supple no adenopathy Cardiovascular, regular rate and rhythm Lungs, clear bilateral Abdomen, soft nontender anterior abdominal wall hernia is very soft periumbilical superiorly around 12 to 2 o'clock position Back is unremarkable the midline back shows really nothing acute she is a vague pain to the left paralumbar area she is able to stand and walk without difficulty she can knee bend without difficulty, she can walk around the room with no pain no radiation the pain is restricted to the left paralumbar area no radiation to the legs no paresthesias no signs of cauda equina Extremities, no clubbing cyanosis or edema Neurologic, awake alert answering questions appropriately moving all 4 ext remities Test Results: [] Emergency Department Course and Treatment: [] Had a long conversation with the patient we discussed the limitations offered by the Xarelto therapy she has multiple allergies possibly to [place] but not Percocet, she is suggesting that the prednisone made her chronic nausea worse we discussed initially comes s topping the prednisone and treating her for her lumbar back pain with Percocet and then she indicated she spoke with her daughter who is a nurse who wants her evaluated for her recurrent abdominal pain and worsening nausea At this time patient will undergo screening labs CT IV fluids pain management The patient's CBC chemistry panel labs UA are all generally unremarkable, the CT shows nothing acute shows some DJD L4 level questionable age indeterminate T12 fracture no bowel obstruction no signs of anything acute Explained all of the above to the family they understand at this time they will follow-up with the orthopedic service for her back pain, they will follow-up with a GI service she seen in the past for her GI elements and the nausea and the difficulty with bowel movements she will continue to use her stool softeners, she will use Tylenol for pain to be given Percocet which she is not allergic to as a rescue medicine and return for change in symptoms Treatment Plan: [] Disposition: [] Home stable Impression: [] Left lumbar back pain, nausea intermittent abdominal discomfort This note was generated with [employer] software. It may contain incorrect words, spelling, and punctuation that were not noted in review of the chart prior to signing ED Disposition - Plan for ED Patient: Referrals: Dillon Salgado MD [Primary Care Provider] -
[2018-12-10 14:49] LABS: Bacteria 0 SEEN /hpf (None Seen); Mucous, Urine 0 SEEN /hpf (<or=2+); Red Blood Cells-Urine 0 SEEN /hpf (0-5); Squamous Epithelial Cells - UA 0 SEEN /hpf (5-10); White Blood Cells 0 SEEN /hpf (0-5)
[2018-12-10 14:50] LABS: Color, Urine Yellow (Yellow); Glucose, Dipstick Normal (Normal); Ketone-Dipstick Negative (Negative); Leukocyte Esterase-Dipstick 25 /ul (Negative); Nitrite-Dipstick Negative (Negative); Occult Blood-Urine 150 /ul (Negative); Protein-Dipstick 100 mg/dl (Negative); Specific Gravity, Urine 1.025 (1.002-1.030); Urine Bilirubin Dipstick Negative (Negative); Urine Clarity Clear (Clear); Urine Urobilinogen Normal (Normal)
[2018-12-10] MEDS: Ondansetron 4 MG/2 ML Vial IV (15:20)
[2018-12-10] MEDS: 0.9% Normal Saline 1,000 ML 125 ML IV (15:20)
[2018-12-10 15:21] LABS: Absolute Lymphocyte Count 0.34 X10^3/ul (0.83-4.51); Absolute Neutrophil Count 8.9 X10^3/uL (2.0-7.7); Hematocrit 40.8 % (37-47); Hemoglobin 13.4 g/dl (12.0-15.0); Lymphocyte # 0.34 X10^3/ul (4.0); Lymphocyte % 3.5 % (19-41); Mean Corp Hgb Conc 32.8 g/gl (32-36); Mean Corpuscular Hgb 31.8 pg (27.0-32.0); Mean Corpuscular Volume 96.7 fL (81-99); Monocyte# 0.48 X10^3/uL; Monocyte% 4.9 % (0-10); Neutrophil # 8.87 X10^3/uL (2.7-7.7); Neutrophil % 91.5 % (47-70); Platelet Count 226 K/mm3 (150-450); RBC Distribution Width CV 13.8 % (11.6-14.6); RBC Distribution Width SD 47.5 fl (35.1-43.9); Red Blood Count 4.22 M/mm3 (4.2-5.4); White Blood Count 9.7 K/mm3 (4.4-11.0)
[2018-12-10 15:22] LABS: Differential Indicated SCAN CRITERIA MET; POSITIVE COUNT NO; POSITIVE DIFFERENTIAL YES; POSITIVE MORPHOLOGY NO
[2018-12-10 15:36] LABS: AST(SGOT) 26 U/L (15-37); Alanine Aminotransfer ALT/SGPT 24 U/L (13-56); Albumin, Serum 3.5 g/dL (3.2-5.0); Alkaline Phosphatase 104 U/L (45-117); Anion Gap 5 (5-15); BUN 22 mg/dL (7-18); Bilirubin, Direct 0.13 mg/dL (0.00-0.30); Chloride 94 mmol/L (98-107); Creatinine, Serum 1.22 mg/dL (0.55-1.02); EST Glomerular Filtration Rate 45 mL/min (>60); Est Glom Filt Rate - Afr Amer 54 mL/min (>60); Estimated Creatinine Clearance 36.48 ml/min; Globulin 4.6 g/dL (2.2-4.2); Glucose 113 mg/dL (74-106); Lipase 91 U/L (73-393); Potassium 4.6 mmol/L (3.5-5.1); Protein, Total 8.1 g/dL (6.4-8.2); Sodium Level 130 mmol/L (136-145)
[2018-12-10 15:41] LABS: Anisocytosis RARE; Macrocytosis RARE; Platelet Estimate ADEQUATE (ADEQ)
--- NOTE | 2018-12-10 16:50 | ED.DEP ---
ED Disposition - Plan for ED Patient: Instructions: ED Spasm Back No Trauma, ED Abdominal Pain Unkn Cause Prescriptions: Oxycodone HCl/Acetaminophen [Percocet 5/325] 1 tab PO Q6H PRN PRN 3 Days #12 tab PRN Reason: Pain Referrals: Dillon Salgado MD [Primary Care Provider] -
--- NOTE | 2018-12-10 17:14 | ED.RN ---
REVIEWED D/C INSTRUCTIONS, FOLLOW UP CARE, PRESCRIPTION, AND S/S THAT WOULD WARRANT A RETURN TO THE ED WITH PT. PT VERBALIZED AN UNDERSTANDING AND DENIES FURTHER QUESTIONS FOR THIS RN. PT SKIN P/W/D, RESP EVEN AND UNLABORED, PT A&O X 3, NO DISTRESS NOTED. PT AMBULATED OUT OF ED, GAIT STEADY.
== END 2018-12-10 17:15 | disposition home or self-care (01) ==
LOC: ED 14:22
PROVIDERS: Emergency Provider Emergency Medicine; Family Provider Family Medicine; PCP Family Medicine
DX: M54.5 Low back pain (principal); R10.9 Unspecified abdominal pain; R11.2 Nausea with vomiting, unspecified; G89.29 Other chronic pain; K42.9 Umbilical hernia without obstruction or gangrene; I48.0 Paroxysmal atrial fibrillation; M47.816 Spondylosis without myelopathy or radiculopathy, lumbar region; Z79.01 Long term (current) use of anticoagulants; Z79.899 Other long term (current) drug therapy
CPT/HCPCS: 74176; 80048; 80076; 81001; 83690; 85025; 96361; 96374; 99283; J7030; A4216; J2405

== ENCOUNTER → 2019-01-14 | Outpatient (CLI) | payer MEDICARE, OTHER, SELFPAY ==
--- NOTE | 2019-01-14 11:19 | RAD_ITS ---
STUDY: X-RAY CHEST REASON FOR EXAM: Female, 83 years old. Shortness of breath. Patient is having cardioversion done tomorrow. TECHNIQUE: PA and lateral views of the chest. COMPARISON: January 14, 2019. FINDINGS: Loop recorder is visible. Surgical clips are visible in left axilla. There is hyperinflation of the lungs consistent with chronic obstructive lung disease (COPD). There is no demonstrated pleural abnormality. There is borderline cardiomegaly. There is air-fluid level in a masslike process in the middle mediastinum probably related to a moderately large hiatal hernia. This is unchanged since the previous study. There is prominence of the pulmonary hilar arteries without peripheral pulmonary vascular congestion. There is atherosclerotic calcification of the aortic arch with tortuosity. There is demineralization of the osseous structures. There is increased thoracic kyphosis. There appear to be multiple compression fractures of the thoracic spine, similar to previous study. There is decreased left-sided acromiohumeral distance suggesting sequela of chronic rotator cuff tear. There appears to be mesh material within the anterior abdominal wall. RAD/Chest PA and Lateral IMPRESSION: 1. Mild cardiomegaly and COPD without evidence of acute cardiopulmonary disease. 2. Moderately large hiatal hernia. Electronically Signed: Kyra Quick MD at 11:48 EDT , Service support ,
[2019-01-14 12:33] LABS: Absolute Lymphocyte Count 0.49 X10^3/ul (0.83-4.51); Absolute Neutrophil Count 6.1 X10^3/uL (2.0-7.7); Basophil# 0.01 X10^3/uL; Basophil% 0.1 % (0-1); Hemoglobin 13.3 g/dl (12.0-15.0); Lymphocyte # 0.49 X10^3/ul (4.0); Lymphocyte % 6.7 % (19-41); Mean Corp Hgb Conc 33.3 g/gl (32-36); Mean Corpuscular Hgb 31.7 pg (27.0-32.0); Mean Corpuscular Volume 95.5 fL (81-99); Mean Platelet Vol. 9.9 fl (6.2-12.0); Monocyte# 0.62 X10^3/uL; Monocyte% 8.5 % (0-10); Neutrophil # 6.14 X10^3/uL (2.7-7.7); Neutrophil % 84.6 % (47-70); Platelet Count 246 K/mm3 (150-450); RBC Distribution Width CV 14.9 % (11.6-14.6); RBC Distribution Width SD 50.4 fl (35.1-43.9); Red Blood Count 4.19 M/mm3 (4.2-5.4); White Blood Count 7.3 K/mm3 (4.4-11.0)
[2019-01-14 12:38] LABS: Differential Indicated SCAN CRITERIA MET; POSITIVE COUNT NO; POSITIVE DIFFERENTIAL YES; POSITIVE MORPHOLOGY NO
--- NOTE | 2019-01-14 16:16 | HP.PCM_ITS ---
History and Physical Date of Admission: 01/15/19 HPI HPI History of Present Illness Surgical H&P: Yes Details: YAEL TRIPP, is a 83 F who presents to the office today for a cardiovascular outpatient follow-up. She has a history of coronary artery disease status post angioplasty and stenting of a high-grade lesion in her LAD in 2009, atrial fibrillation status post cardioversion and ablation in December 2013, NITHYA cardioversion in January 2017, and DCCV in May 2017, August 2017, and November 2018. Most recently, patient has noticed increase in heart rate and feeling more SOB with activity. She presented to the office on 01/14/2019 for further evaluation. She states yesterday after leaving PCP office she tripped on her car door and hit her chin. There were no prodromal symptoms such as lightheadedness, dizziness, chest pain, or shortness of breath. She did not seek medical attention. Pt denies chest, arm, jaw, or neck discomfort. Her exercise tolerance is stable. She states continual lightheadedness and dizziness with position changes. She state feeling jittery this morning and notices SOB with activity this morning as well. She denies symptoms of near syncopal or syncopal episodes. She state she feels less energy today than yesterday and increase in heart rate. Pt denies edema or claudication issues. Pt. denies orthopnea, PND, blood in urine, blood in stool, or myalgia. She has not discontinued or stopped her Xarelto. She was evaluated at PCP office yesterday and recently obtained a BMP. Intake Vital Signs 01/14/19 Height 5 ft 8 in 01/14/19 Weight: 174 lb 01/14/19 Body Mass Index (BMI) 26.4 01/14/19 Blood Pressure 112/77 01/14/19 Blood Pressure Location Lt brachial 01/14/19 Blood Pressure Position Sitting 01/14/19 Respiratory Rate 16 01/14/19 Pulse Rate 131 H 01/14/19 Pulse Source Monitor 01/14/19 Pulse Ox 95 01/14/19 Oxygen Delivery Method room air Intake Visit Reasons: thinks back in atrial fib Allergies etodolac Allergy (Verified 12/10/18 15:24) Nausea hydrocodone [From Vicodin] Allergy (Verified 12/10/18 15:24) CONFUSION codeine Adverse Reaction (Verified 12/10/18 15:24) Nausea/Vom/Diarrhea Medications Atorvastatin Calcium 20 mg PO DAILY 01/24/17 [History Confirmed 12/10/18] Brimonidine Tartrate/Timolol [Combigan Eye Drops] 1 drp EACH EYE BID 01/24/17 [History Confirmed 12/10/18] Latanoprost 0.005% [Xalatan Opthalmic] 1 drp EACH EYE DAILY 01/24/17 [History Confirmed 12/10/18] Multivit-Min/Iron/Folic/Lutein [Centrum Silver Women Tablet] 1 tab PO DAILY 01/24/17 [History Confirmed 12/10/18] furosemide 20 mg tablet 20 mg PO DAILY PRN #90 tab 03/31/18 [Rx Confirmed 12/10/18] diltiazem CD 120 mg capsule,extended release 24 hr 120 mg PO DAILY #90 cap 04/03/18 [Rx Confirmed 12/10/18] Rivaroxaban [Xarelto] 20 mg PO QDAY 04/16/18 [History Confirmed 12/10/18] metoprolol tartrate 50 mg tablet 75 mg PO BID #75 tab 08/18/18 [Rx Confirmed 12/10/18] amiodarone 200 mg tablet 200 mg PO BID #90 tab 01/14/19 [Rx] PFSH Medical History Atrial flutter (Chronic) History of cancer of left breast (Chronic) Atrial fibrillation (Chronic) Atherosclerotic heart disease of [place] coronary artery without angina pectoris (Chronic) Acute bronchitis (Acute) Pharyngitis, acute (Acute) Atrial fibrillation with RVR (Acute) Hypertension (Chronic) Atrial fibrillation and flutter (Chronic) Coronary artery disease (Chronic) Microcytic anemia (Acute) Iron deficiency anemia (Chronic) History of breast cancer (Chronic) Palpitations (Chronic) Arthritis (Chronic) Surgical History History of cardiac radiofrequency ablation (Chronic) Stented coronary artery (Chronic) History of left heart catheterization (Chronic) History of left knee replacement (Chronic) History of loop recorder (Chronic) History of lumpectomy of left breast (Chronic) History of cardioversion (Resolved 11/09/18) History of hernia repair (Resolved) History of left hip replacement (Resolved) History of right knee joint replacement (Resolved) Family History Father No family history of coronary artery disease Social History alcohol intake: current alcohol intake frequency: holidays/special occasions only Alcohol type: wine caffeine: Yes Type: coffee Number of servings: 1 ROS Const Const: Positive for fatigue and other (recent fall); negative for weakness, body ache, fever(s) or chills ENT ENT: Positive for dizziness Cardio Chest Pain: No Palpitations: Yes Edema: None Muscle aches with walking: None Resp Respiratory: Positive for SOB with activity; negative for SOB at rest, SOB orthopnea\SOB lying down or paroxysmal nocturnal dyspnea GI GI: Negative nausea, vomiting blood/hematemesis, bright, red blood in stools or black,tarry stools : Negative for hematuria or frequent nighttime urination/ nocturia Musc Musc: Negative for muscle aches/ myalgia Skin Skin: Negative non-healing lesions or rash Neuro Neuro: Positive for dizziness and lightheadedness; negative for near syncope, syncope or weakness Endo Endo: Positive for fatigue Allergy Allergy/Immunology: Negative for rash Cardiology Exam Const Appearance: cooperative, healthy appearing, comfortable and no acute distress Nutritional Appearance: well nourished and overweight Orientation: alert, awake and oriented x3 Head Head: normal to inspection Ears: hearing grossly normal bilaterally Nose: external nose normal Face and Sinus: face symmetric Mouth: oral mucosae normal Eyes General: appearance normal, both eyes and all related structures Eyelids: eyelids normal EOM: EOM intact bilaterally Neck Neck: normal visual inspection and no JVD Carotids: normal carotid upstroke Chest Chest inspection: normal inspection of the chest, symmetric chest movement and normal respiratory effort; negative cough Auscultation: Bilateral: Clear to Auscultation Cardio Rate: tachycardic Rhythm: regular rhythm Heart sounds: S1 normal, S2 normal and normal, physiologic split S2; negative rub, gallop or murmur GI GI: normal to inspection Neuro General: alert, awake, oriented x3 and CN's II-XI intact bilaterally Skin Skin: no rashes or lesions noted and other (left lower chin hard hematoma ) Extremities Pulses: Normal: Right Posterior Tibial Pulse, Left Posterior Tibial Pulse, Right Radial Pulse, Left Radial Pulse Lower Extremity Edema: None: Bilateral Psych Psychological: normal affect Assessment & Plan 1. Atrial flutter, unspecified type I48.92 Plan Patient's EKG in office shows a 2:1 atrial flutter at a rate of 131 bpm. Her heart rate at the primary care physician office yesterday was noted to be 60 bpm. Her case was discussed further with Dr. Harris. Because of her elevated heart rate she will increase her amiodarone to 200 mg p.o. twice daily. She will continue with her current dosage of Cardizem 120 mg and metoprolol 75 mg p.o. twice daily. She will continue to monitor blood pressure. She states she has not discontinued or forgotten any dosages of her Xarelto. She will continue Xarelto 20 mg p.o. daily. She will undergo a repeat cardioversion. Orders Referrals: Electrophysiology DARON Garcia 2. History of cardiac radiofrequency ablation Z98.890 12/31/13 EP study,SVT ablation, pulmonary vein isolation per Dr. Mazariegos @ [facility]; 06/22/2014 EP and atrial flutter ablation and PV isolation per Dr. Mazariegos @ [facility] Plan His previous ablation procedures with Dr. Mazariegos. It was recommended due to multiple cardioversions that she be reevaluated with Dr. Mazariegos. She is hesitant to travel to [facility]. A referral will be placed to Dr. Mazariegos while patient makes ultimate decision. Orders Referrals: Electrophysiology DARON Garcia 3. Atherosclerosis of [place] coronary artery of [place] heart without angina pectoris I25.10 PTCA and ALEXIS of LAD @ [facility] per Dr. Grover Richard 02/19/2010; 50% s tenosis of left cx Plan Her heart catheterization February 2010 resulted in angioplasty and stenting to her LAD and showed LCx with mild disease. Her echocardiogram in March 2018 showed improved ejection fraction of 55%. Patient denies any chest pain, arm pain, jaw pain, or neck pain. We will continue to monitor. We will not make any medication regimen changes and will continue risk factor modification. Based on response to cardioversion and symptoms, perhaps it is prudent to evaluate for coronary artery disease given her history of stenting in 2009 and reoccurring episodes of paroxysmal atrial fibrillation. This will be reevaluated at office appointment in near future after cardioversion. Orders Referrals: Electrophysiology DARON Garcia 4. Stented coronary artery Z95.5 PTCA and ALEXIS of LAD @ [facility] per Dr. Grover Richard 02/19/2010; 50% stenosis of left cx Plan She will continue current treatment plan as outlined above. Orders Referrals: Electrophysiology DARON Garcia 5. Essential hypertension I10 Plan Patient's blood pressure is well-controlled. We will continue to monitor. We will not make any medication regimen changes. Orders Referrals: Electrophysiology Myron Khoury DARON Blanchard 6. Fall W19.XXXA Plan Patient's fall appears mechanical in nature. She denies direct impact to her head and she states hitting her left lower chin region. She denies any neurological deficit. There is a significant, hard hematoma noted. She will undergo a CBC to ensure that her hemoglobin is stable given injury factor Xa inhibitor. Her hemoglobin was noted to be normal. Plan Detail Other Orders Orders: 12 Lead EKG performed by [facility] Today I48.91 Shelton Harris MD Additional Comments Discussed the above patient with Dr. Harris, he agrees with the plan of care. Thank you for allowing us to participate in the patients plan of care, if you have any questions please do not hesitate to call. This note was generated using a voice recognition system and there may be incorrect words, spelling or punctuation that were not noted when reviewing the office note prior to saving. Coding Level of Care Code Off vis,est,level 3 Diagnoses Atrial flutter, unspecified type I48.92 Atrial flutter type: unspecified History of cardiac radiofrequency ablation Z98.890 Atherosclerosis of [place] coronary artery of [place] heart without angina pectoris I25.10 [place] vs. transplanted heart: [place] heart Stented coronary artery Z95.5 Essential hypertension I10 Hypertension type: essential hypertension Fall W19.XXXA Coding Level of Care Code Off vis,est,level 3 Diagnoses Atrial flutter, unspecified type I48.92 Atrial flutter type: unspecified History of cardiac radiofrequency ablation Z98.890 Atherosclerosis of [place] coronary artery of [place] heart without angina pectoris I25.10 [place] vs. transplanted heart: [place] heart Stented coronary artery Z95.5 Essential hypertension I10 Hypertension type: essential hypertension Fall W19.XXXA Supplemental Info Supplemental Information Echocardiogram from March 2018 showed normal LV size, estimated ejection fraction 55%, mildly enlarged left atrium, mild mitral valve insufficiency, and when compared to previous echocardiogram LV function has improved. Holter monitor from August 2017 showed sinus rhythm but predominantly atrial fibrillation/flutter, minimum heart rate of 65 bpm, maximum heart rate 141 bpm, average heart rate 112 bpm, no ventricular ectopy, and patient's symptoms of shortness of breath and dizziness correlated with atrial for ablation. Heart catheterization from February 2010 showed angiographically normal left main coronary artery, LAD with 70-80% stenosis, LCx with mild disease in the proximal segment, RCA with no high-grade stenosis but mild mid plaque, and preserved ejection fraction. She underwent angioplasty and stenting to LAD. Diagnostics Electrocardiogram 01/14/19 Chest X-Ray 01/14/19 01/14/19 1523<Electronically signed by Myron NERI> Date Myron NERI
== END | disposition home or self-care (01) ==
PROVIDERS: Family Provider Family Medicine; PCP Family Medicine; Referring Provider Nurse Practitioner Family; Visit Provider Nurse Practitioner Family
DX: I48.91 Unspecified atrial fibrillation (principal); Z79.01 Long term (current) use of anticoagulants; I25.10 Atherosclerotic heart disease of native coronary artery without angina pectoris; Z98.890 Other specified postprocedural states
CPT/HCPCS: 36415; 71046; 85025

== ENCOUNTER 2019-01-15 10:57 | Day surgery (SDC) | payer MEDICARE, OTHER, SELFPAY ==
[2019-01-15 07:21] VITALS: BMI 26.4
--- NOTE | 2019-01-15 12:43 | CARDIOVERS ---
Cardioversion Cardioversion: DC cardioversion. 83-year-old lady with a history of atypical atrial tachycardia and atrial flutter. Patient on chronic Xarelto. Estimated ejection fraction 55%. The patient was seen by Dr. García of the critical care division. After informed consent was obtained anterior-posterior pads were applied. The patient was administered 60 mg of intravenous propofol. 200 J of DC cardioversion energy were applied with prompt reversal to sinus rhythm. The patient was noted to be in sinus rhythm. Conclusion: Continue current medications. We will increase amiodarone to 200 mg twice a day. We discussed with elective physiology service about an attempted repeat ablation for atrial tachyarrhythmia.
--- NOTE | 2019-01-15 12:48 | PCM.OP.PRO ---
Procedure Report Date of Procedure: 01/15/19 CONSCIOUS SEDATION REPORT DATE OF SERVICE: January 15, 2019 BRIEF HISTORY OF PRESENT ILLNESS: The patient is an 83-year-old female who presented to [facility] for an elective outpatient cardioversion due to underlying atrial fibrillation. The patient last underwent a cardioversion in November 2018. The documentation from that procedure was personally reviewed. The patient has no history of obstructive sleep apnea or COPD. She denies any previous anesthetic complications. Her last known ejection fraction was 55%. She is currently anticoagulated on Xarelto. PHYSICAL EXAMINATION: VITAL SIGNS: Reviewed and were acceptable. GENERAL: The patient is a female, in no apparent distress, speaking in full sentences. HEENT: Normocephalic, atraumatic. Mucous membranes are moist and pink. Good mouth opening noted. Trachea is midline. MP III CHEST: S1, S2 irregularly irregular. No murmurs, rubs or gallops were noted. LUNGS: Clear to auscultation bilaterally without appreciable wheezes, rales or rhonchi. ABDOMEN: Soft, nontender, nondistended. Positive bowel sounds. EXTREMITIES: There is no clubbing, cyanosis or edema. ASA Class: II DESCRIPTION OF PROCEDURE: After confirmation of informed consent, the patient's anesthesia plan was reviewed in detail. Propofol was chosen. Risks and benefits were reviewed and the patient agreed to proceed. At 1232, the patient was given 60 mg of propofol. The patient achieved an appropriate level of sedation and was given a 200 joule synchronized cardioversion by Dr. Harris at the bedside. This was successful in achieving normal sinus rhythm. The patient was monitored until 1240, at which time she reached her baseline mental status and function. The patient tolerated the procedure well. COMPLICATIONS: None ESTIMATED BLOOD LOSS: None RECOMMENDATIONS: Okay to recover in usual fashion. Code Visit 9xxxx: Other Procedure See Report - [id number]
== END 2019-01-15 14:01 | disposition home or self-care (01) ==
LOC: CLSP 10:59
PROVIDERS: Family Provider Family Medicine; PCP Family Medicine; Referring Provider Internal Medicine Cardiovascular Disease; Visit Provider Internal Medicine Cardiovascular Disease
DX: I48.92 Unspecified atrial flutter (principal); I47.1 Supraventricular tachycardia; I25.10 Atherosclerotic heart disease of native coronary artery without angina pectoris; I10 Essential (primary) hypertension; I48.91 Unspecified atrial fibrillation; M19.90 Unspecified osteoarthritis, unspecified site; Z98.890 Other specified postprocedural states; Z85.3 Personal history of malignant neoplasm of breast; Z86.2 Personal history of diseases of the blood and blood-forming organs and certain disorders involving the immune mechanism; Z95.5 Presence of coronary angioplasty implant and graft; Z79.01 Long term (current) use of anticoagulants; Z79.899 Other long term (current) drug therapy
CPT/HCPCS: 92960; 93005; J7040

== ENCOUNTER 2019-02-11 20:51 | Emergency (ER) | payer MEDICARE, OTHER, SELFPAY ==
[2019-02-11 20:51] VITALS: BP 162/93; PULSE 60; RESP 18; TEMP 36.2; O2SAT 95; BMI 27.2
--- NOTE | 2019-02-11 22:37 | RAD_ITS ---
STUDY: X-RAY CHEST REASON FOR EXAM: Female, 83 years old. Shortness of breath TECHNIQUE: Frontal and lateral views of the chest. COMPARISON: : January 14, 2019 FINDINGS: Surgical clips left axilla. Loop Recorder left chest. There is hyperinflation of the lungs consistent with chronic obstructive lung disease (COPD). There is no demonstrated pleural abnormality. Normal size heart. Normal mediastinum and geovanna. Normal visualized pulmonary arteries. Normal visualized aortic arch and descending thoracic aorta. Normal visualized thoracic spine. Normal visualized ribs, clavicles, and shoulders. Large hiatal hernia. Metallic coils in the abdomen. RAD/Chest PA and Lateral IMPRESSION: COPD and large hiatal hernia. Electronically Signed: Everardo Cash MD at 23:32 EDT , Service support ,
--- NOTE | 2019-02-11 22:38 | CT_ITS ---
HISTORY: BLOATING, HERNIA PUSHING ON LUNGS PER PATIENT, HX LEFT BREAST CA WITH RAD TX, A-FIB, STENTS TECHNIQUE: Helically acquired images were obtained of the abdomen and pelvis without oral or IV contrast. A radiation dose optimization technique was used for this scan. COMPARISON: CT abdomen pelvis 12/10/18. FINDINGS: # of images incl. paperwork: [id number] LOWER CHEST: Large hiatal hernia contains the majority of the stomach, not fully visible, mildly distended but not dilated. Mild subpleural interstitial prominence lung bases similar to prior. LIVER: Homogeneous. No focal mass. GALLBLADDER AND BILIARY TREE: Several small gallstones in the gallbladder which is nondistended and with no adjacent inflammation. No intra- or extrahepatic biliary ductal dilation. KIDNEYS AND URETERS: Normal renal size and position. No hydronephrosis. ADRENAL GLANDS: Non-enlarged. SPLEEN: Normal size, no mass. PANCREAS: No pancreatic inflammation or mass. BOWEL: Appendix not identified; no evidence of apendicitis.. No obstruction or inflammation of the bowel. Prominent stool in the cecum and to a lesser extent the remainder of the large bowel. LYMPH NODES: No enlarged mesenteric or retroperitoneal lymph nodes. PERITONEUM: No ascites or free air. No other fluid collection. VESSELS: No abdominal aortic aneurysm. Moderate atherosclerosis. URINARY BLADDER: Unremarkable. REPRODUCTIVE ORGANS: 3.4 cm diameter left ovarian cystic lesion, partially obscured by streak artifact from the adjacent left hip arthroplasty. Uterus and right ovary unremarkable. ABDOMINAL WALL: Chronic postoperative changes with mesh. Midline supraumbilical hernia with a thin neck containing mesenteric fat and vessels but no bowel, unchanged. BONES: No acute osseous abnormality. Chronic compression fracture T12 vertebral body again demonstrated, now with near complete loss of height. Left total hip arthroplasty with thinning of the overlying acetabulum unchanged. Degenerative anterolisthesis of L4 on L5. CT/Abdomen/Pelvis without Cont IMPRESSION: No acute findings. Appearance of the bowel compatible with ileus/constipation. Large hiatal hernia contains much of the stomach, partially visible but no evidence of obstruction. 3.4 cm left ovarian cystic lesion, partially obscured by streak artifact from the adjacent left hip arthroplasty. This area was not well seen on the previous study due to streak artifact. Consider follow-up pelvic ultrasound to better evaluate. Cholelithiasis, no evidence cholecystitis. Other chronic findings as above. Individualized dose optimization techniques were used for this CT. at 0030 Reported and signed by: Jesse Thompson MD Electronically Signed: Jesse Thompson, at 0:28 EDT Tel , Service support ,
--- NOTE | 2019-02-11 22:39 | ED.DCSUM_ITS ---
- ER Visit Summary Date of Service: 02/11/19 Chief Complaint: Shortness of breath, abdominal distention, back pain History of Present Illness: The patient is a 83 F who presents with multiple complaints. She has a history of a ventral hernia. She states that over the past couple of days her abdomen has felt more distended. Because of this it is difficult to take a deep breath. When she wears tighter fitting pants she feels short of breath. She also reports nausea. No vomiting. No abdominal pain. No chest pain fevers congestion rhinorrhea cough. She also complains of chronic back pain of several months. She states this began around [place]. She has been seen previously for this and has been referred to pain management. She is scheduled for epidural injections. She also has a prescription for Percocet at home but is not taking it because she is scared that she will get addicted. Physical Examination: Afebrile blood pressure 162/93 Moist mucous membranes Heart regular rate and rhythm Lungs are clear Abdomen soft nontender nondistended there is a ventral hernia Alert Patient does have some bilateral paraspinal lumbar tenderness Normal strength and sensation Test Results: CBC BMP notable for hemoglobin 11.9, glucose 119. Chest x-ray s hows COPD and a large hiatal hernia. CT the abdomen and pelvis shows no acute findings there is an ileus or constipation pattern large hiatal hernia and an incidental left ovarian cystic lesion. Emergency Department Course and Treatment: Patient was given morphine and Zofran for her back pain. Her work-up as above is unremarkable without acute findings. She was advised to follow-up with pain management in regards to her back pain. She has already has pain medication at home. She was advised to follow-up as an outpatient. She understands return for new or worsening symptoms. She was discharged. Treatment Plan: [] Disposition: Discharge Impression: Hiatal hernia Chronic back pain This note was generated with [employer] dictation software. It may contain incorrect words, spelling, and punctuation that were not noted in review of the chart prior to signing ED Disposition - Plan for ED Patient: Referrals: Dillon Salgado MD [Primary Care Provider] -
[2019-02-11] MEDS: Ondansetron 4 MG/2 ML Vial IV (22:53)
[2019-02-11] MEDS: Morphine 4 MG/ML Syringe IV (22:53)
[2019-02-11 23:08] LABS: Absolute Lymphocyte Count 0.76 X10^3/ul (0.83-4.51); Absolute Neutrophil Count 9.2 X10^3/uL (2.0-7.7); Basophil# 0.01 X10^3/uL; Basophil% 0.1 % (0-1); Eosinophil# 0.07 X10^3/uL; Eosinophils% 0.6 % (0-5); Hematocrit 36.2 % (37-47); Hemoglobin 11.9 g/dl (12.0-15.0); Lymphocyte # 0.76 X10^3/ul (4.0); Mean Corp Hgb Conc 32.9 g/gl (32-36); Mean Corpuscular Hgb 32.5 pg (27.0-32.0); Mean Corpuscular Volume 98.9 fL (81-99); Mean Platelet Vol. 10.4 fl (6.2-12.0); Monocyte# 0.85 X10^3/uL; Monocyte% 7.8 % (0-10); Neutrophil # 9.17 X10^3/uL (2.7-7.7); Neutrophil % 84.3 % (47-70); POSITIVE COUNT NO; POSITIVE DIFFERENTIAL NO; POSITIVE MORPHOLOGY NO; Platelet Count 219 K/mm3 (150-450); RBC Distribution Width CV 16.2 % (11.6-14.6); RBC Distribution Width SD 58.6 fl (35.1-43.9); Red Blood Count 3.66 M/mm3 (4.2-5.4); White Blood Count 10.9 K/mm3 (4.4-11.0)
[2019-02-11 23:34] LABS: Anion Gap 8 (5-15); BUN 21 mg/dL (7-18); BUN/Creat Ratio 20.6 RATIO (10-20); Calcium,Total 9.1 mg/dL (8.5-10.1); Chloride 100 mmol/L (98-107); Creatinine, Serum 1.02 mg/dL (0.55-1.02); EST Glomerular Filtration Rate 55 mL/min (>60); Est Glom Filt Rate - Afr Amer 67 mL/min (>60); Estimated Creatinine Clearance 42.06 ml/min; Glucose 119 mg/dL (74-106); Potassium 4.4 mmol/L (3.5-5.1); Sodium Level 137 mmol/L (136-145)
[2019-02-12 00:30] VITALS: BP 147/74; PULSE 55; RESP 18; O2SAT 98
--- NOTE | 2019-02-12 00:53 | ED.DEP ---
ED Disposition - Plan for ED Patient: Instructions: What Is a Hiatal Hernia?, BACK PAIN (Acute or Chronic) Referrals: Dillon Salgado MD [Primary Care Provider] -
[2019-02-12 01:18] VITALS: PULSE 60; RESP 17; O2SAT 98
== END 2019-02-12 01:19 | disposition home or self-care (01) ==
PROVIDERS: Emergency Provider Emergency Medicine; Family Provider Family Medicine; PCP Family Medicine
DX: K44.9 Diaphragmatic hernia without obstruction or gangrene (principal); K43.9 Ventral hernia without obstruction or gangrene; M54.9 Dorsalgia, unspecified; G89.29 Other chronic pain; J44.9 Chronic obstructive pulmonary disease, unspecified; N83.202 Unspecified ovarian cyst, left side; I10 Essential (primary) hypertension; E78.00 Pure hypercholesterolemia, unspecified; I48.91 Unspecified atrial fibrillation; Z79.01 Long term (current) use of anticoagulants; Z79.899 Other long term (current) drug therapy
CPT/HCPCS: 71046; 74176; 80048; 85025; 96374; 96375; 99283; A4216; J2405

== ENCOUNTER → 2019-02-25 | Outpatient (CLI) | payer MEDICARE, OTHER, SELFPAY ==
[2019-02-11 20:51] VITALS: BMI 27.2
--- NOTE | 2019-02-25 08:23 | RAD_ITS ---
STUDY: AIR-CONTRAST UPPER GI SERIES. REASON FOR EXAM: Female, 83 years old. Abdominal bloating and shortness of breath. FLUOROSCOPY TIME (if supplied): (0:26) minutes/seconds. 16 images were obtained. TECHNIQUE: The patient ingested barium. Multiple images of the esophagus, stomach and duodenum were obtained. COMPARISON: None. FINDINGS: Tertiary contractions of the distal esophagus are seen. Large sliding hiatal hernia without evidence of gastroesophageal reflux. The remainder of the stomach and duodenum is unremarkable. Small diverticulum is seen in the second portion of the duodenum. RAD/Upper GI Series Only IMPRESSION: Large sliding hiatal hernia without gastroesophageal reflux. Small diverticulum in the second portion of the duodenum. Increased markings at the lung bases suggestive of scarring. Electronically Signed: Mir Morgan, at 15:13 EDT , Service support ,
== END | disposition home or self-care (01) ==
LOC: RAD 08:22
PROVIDERS: Family Provider Family Medicine; PCP Family Medicine; Referring Provider Surgery; Visit Provider Surgery
DX: R10.9 Unspecified abdominal pain (principal)
CPT/HCPCS: 74246

== ENCOUNTER → 2019-03-01 | Outpatient (CLI) | payer MEDICARE, OTHER, SELFPAY ==
[2019-02-26 14:24] VITALS: BMI 27.2
[2019-03-03 09:27] LABS: Cancer Antigen 125 12.9 U/mL (0.0-38.1)
== END | disposition home or self-care (01) ==
LOC: MTLAB 14:08
PROVIDERS: Family Provider Family Medicine; PCP Family Medicine; Referring Provider Surgery; Visit Provider Surgery
DX: N83.8 Other noninflammatory disorders of ovary, fallopian tube and broad ligament (principal)
CPT/HCPCS: 36415; 86304

== ENCOUNTER → 2019-04-08 16:01 | Outpatient (CLI) | payer MEDICARE, OTHER, SELFPAY ==
[2019-03-04 08:48] VITALS: BMI 25.9
--- NOTE | 2019-04-07 15:30 | BON_PTH ---
PATIENT: YAEL TRIPP LOC: [facility] U#:[id number] AGE/SX: 89/F ROOM: RE04/08/[address]: Dr. Dillon Gomez MD : [id number] BED: DIS: SPEC #: [id number] RECD: 04/08/19 15:43 STATUS: RAEANN REDat #: [id number] GUNNAR: 04/07/19 15:[address]: Dillon Gomez DEPT: SURGICAL PATHOLOGY RECD BY: Robert Scott ENTERED: 04/09/19 11:24 SP TYPE: Bone OTHR DR: Dr. Dillon Salgado MD [facility] Tissues: Vertebra, NOS Procedures: Decalcification bone/plaque Surgery Specimen Level IV HEADER OPERATION: Kyphoplasty T12 PRE-OP DIAGNOSIS: Compression fracture of lumbar spine TISSUE SUBMITTED: Bone of T12 MICROSCOPIC DIAGNOSIS Bone of T12, kyphoplasty: Fragments of blood clot mixed with minute fragments of bone, negative for malignancy. See comment. AM:rima 04/13/19 COMMENT Cells also show marked crushed artifacts. Clinical correlation and appropriate follow up are necessary. Case has been reviewed in consultation with Dr. Tom who concurs with the above diagnosis. IDC:AM MICROSCOPIC DESCRIPTION Slides are reviewed. GROSS DESCRIPTION Received is one container labeled with the patient's name and not further designated. The specimen consists of multiple fragments of blood clot mixed with possible fragments of bone that in aggregate measure 0.3 x 0.3 x 0.1 cm. The entire specimen is submitted in one cassette after short decalcification. / SJ:rima 04/09/19 TC:5 CPT: 73136, [id number]
== END ==
PROVIDERS: Family Provider Family Medicine; PCP Family Medicine; Referring Provider Anesthesiology Pain Medicine; Visit Provider Anesthesiology Pain Medicine
DX: M48.56XA Collapsed vertebra, not elsewhere classified, lumbar region, initial encounter for fracture (principal)
CPT/HCPCS: 88305; 88311

== ENCOUNTER 2020-08-06 14:11 | Emergency (ER) | payer MEDICARE, OTHER, SELFPAY ==
[2020-08-06] VITALS (8 sets, daily range): BP systolic 129–190; BP diastolic 59–95; PULSE 56–87; RESP 16–24; TEMP 36.2; O2SAT 97–100; BMI 21.1
--- NOTE | 2020-08-06 14:38 | RAD_ITS ---
STUDY: X-RAY CHEST REASON FOR EXAM: Female, 85 years old. Foreign body TECHNIQUE: Frontal view of the chest COMPARISON: None. FINDINGS: The lungs are clear. There are no pleural effusions. There is no pneumothorax. The heart is normal in size. There is a cardiac loop recorder noted. There is vertebral plasty cement within the lower lumbar spine. There is no radiodense foreign body. RAD/Chest 1 View (Portable) IMPRESSION: No acute thoracic pathology. No radiodense foreign body. Electronically Signed: Brandon Garcia, at 15:31 EST Tel , Service support ,
--- NOTE | 2020-08-06 14:48 | ED.DCSUM_ITS ---
History of Present Illness Informant: Patient, Family Onset: Yesterday Context: Gradual Onset Timing: Continuous Quality: difficulty swallowing Location: throat Current Severity: Mild Maximum Severity: Severe Worsened by: food Relieved by: nothing Associated Symptoms: nausea Narrative: 85-year-old female presents to the emergency department with difficulty swallowing. Patient was eating ham last night felt like it stuck and felt like it was stuck for several hours and then she felt like she was able to swallow it but despite that she began to had continued spitting out of her secretions. She has been unable to tolerate her oral medications. She feels like she can tolerate very small sips of water. Daughter brought her in because they were concerned because she cannot take any of her medications. History of a endoscopy remotely Prior similar symptoms: No Recent Illness/Hospitalization: No <Chava Hairston - Last Filed: 08/06/20 14:50> <Jorden Espinal - Last Filed: 08/06/20 18:45> Chief Complaint: Foreign Body Past Medical History Prior records reviewed: Yes Past Medical History: - - Hypertension hyperlipidemia coronary artery disease atrial fibrillation Surgical History: herniorrhaphy, total knee arthroplasty Lives: With Family Smoking Status: Never smoker Alcohol: None Drugs: None - Family History Maternal Family History: Family History (Last Reviewed 03/03/20 @ 14:[address] Shelton Harris MD) Father No family history of coronary artery disease Family History: Reports: No pertinent history Paternal Family History: Family History (Last Reviewed 03/03/20 @ 14:[address] Shelton Harris MD) Father No family history of coronary artery disease Family History: Reports: No pertinent history <Chava Hairston - Last Filed: 08/06/20 14:50> - Family History Maternal Family History: Family History (Last Reviewed 03/03/20 @ 14:[address] Shelton Harris MD) Father No family history of coronary artery disease Paternal Family History: Family History (Last Reviewed 03/03/20 @ 14:[address] Shelton Harris MD) Father No family history of coronary artery disease <Jorden Espinal - Last Filed: 08/06/20 18:45> - Allergies and Home Meds Allergies/Adverse Reactions: Allergies etodolac Allergy (Verified 08/06/20 14:12) Nausea hydrocodone [From Vicodin] Allergy (Verified 08/06/20 14:12) CONFUSION codeine Adverse Reaction (Verified 08/06/20 14:12) Nausea/Vom/Diarrhea Primary Care Physician: Dillon Salgado MD [Primary Care Provider] - Review of Systems All systems negative except as indicated General: Denies: Chills, Fever, Sweats Eyes: Denies: Visual changes - bilaterally, Diplopia ENT: Denies: Rhinorrhea, Sore throat Cardiovascular: Denies: Chest pain, Palpitations Respiratory: Denies: Dyspnea, Cough, Dyspnea on exertion Gastrointestinal: Reports: Nausea, - - Difficulty swallowing. Denies: Abdominal pain, Vomiting, Diarrhea, Melena, Hematochezia Genitourinary: Denies: Dysuria, Hematuria, Frequency Musculoskeletal: Denies: Back pain, Extremity Pain Skin: Denies: Rash, Wounds Neurological: Denies: Headache, Weakness, Numbness <Chava Hairston - Last Filed: 08/06/20 14:50> Physical Exam Vital Signs/Narrative: Vital Signs Temp Pulse Resp BP Pulse Ox 08/06/20 14:12 97.1 F L 65 16 190/93 H 98 Inital Vital Signs reviewed: Yes General: Well nourished, Well developed, No Acute Distress Head: Normocephalic, Atraumatic Eyes: Perrl, EOMI ENT: Moist mucous membranes, No rhinorrhea Neck: Supple, Nontender Cardiovascular: Regular rate, Regular rhythm, No murmurs Respiratory: No distress, CTA bilaterally, Chest nontender Abdomen: Soft, Nontender, Nondistended, Normal bowel sounds Back: Nontender, Normal Inspection Extremities: Nontender, No edema Skin: Normal color, No rash Neurological: Alert, Oriented x3, Cranial nerves II-XII grossly intact, Normal Strength, Normal Sensation Psychological: Normal affect, Normal Mood <Chava Hairston - Last Filed: 08/06/20 14:50> Vital Signs/Narrative: Vital Signs Temp Pulse Resp BP Pulse Ox 08/06/20 16:24 87 20 H 174/88 H 97 08/06/20 14:12 97.1 F L 65 16 190/93 H 98 <Jorden Espinal - Last Filed: 08/06/20 18:45> Diagnostic/Tx/Re-eval - Medical Decision Making 85-year-old female presenting with foreign body sensation in her throat. She is unable to tolerate her secretions. Glucagon was tried however this was unsuccessful. Patient had episode of vomiting and thought that she might have dislodged it, but was unable to tolerate p.o. after this. Dr. Baez was called to come to upper endoscopy. Patient was placed on oxygen, monitor technician. Patient was sedated using 50 mg of propofol. Good sedation was achieved. Dr. Baez then performed upper endoscopy and pushed food bolus into the stomach. Patient tolerated this as well. Patient was monitored until such time she became alert and oriented. Patient will be discharged home in stable condition. She given return precautions. Impression: 1 impacted food bolus?esophagus <Jorden Espinal - Last Filed: 08/06/20 18:45> ED Disposition <Chava Hairston - Last Filed: 08/06/20 14:50> <Jorden Espinal - Last Filed: 08/06/20 18:45> - Plan for ED Patient: Disposition: Home or Assisted Living Instructions: ED Esophageal Foreign Body, Resolved Referrals: Dillon Salgado MD [Primary Care Provider] -
[2020-08-06] MEDS: Glucagon 1 MG/ML Syringe IV (15:00)
[2020-08-06] MEDS: Metoprolol Tartrate 25 MG Tablet 50 MG PO (16:20)
--- NOTE | 2020-08-06 16:27 | ED.RN ---
pt unable to swallow pills. now throwing up/and difficult managing saliva.
[2020-08-06] MEDS: Propofol 200 MG/20 ML Vial IV BOLUS (18:18)
--- NOTE | 2020-08-06 18:33 | OP.EGD_ITS ---
Patient Name: Delia Romero Procedure Date: 08/06/2020 5:56 PM Date of : 1935 Age: 85 Procedure: Upper GI endoscopy Indications: Foreign body in the esophagus Providers: Garcia Baez MD Medicines: See the Anesthesia note for documentation of the administered medications Patient Profile: This is an 85 year old female. Refer to note in patient chart for documentation of history and physical. Complications: No immediate complications. Procedure: Pre-Anesthesia Assessment: - Prior to the procedure, a History and Physical was performed, and patient medications and allergies were reviewed. The patient's tolerance of previous anesthesia was also reviewed. The risks and benefits of the procedure and the sedation options and risks were discussed with the patient. All questions were answered, and informed consent was obtained. Prior Anticoagulants: The patient has taken no previous anticoagulant or antiplatelet agents. ASA Grade Assessment: III - A patient with severe systemic disease. After reviewing the risks and benefits, the patient was deemed in satisfactory condition to undergo the procedure. After obtaining informed consent, the endoscope was passed under direct vision. Throughout the procedure, the patient's blood pressure, pulse, and oxygen saturations were monitored continuously. The gastroscope was introduced through the mouth, and advanced to the duodenal bulb. The upper GI endoscopy was accomplished without difficulty. The patient tolerated the procedure well. Scope In: 6:15:55 PM Scope Out: 6:18:57 PM Total Procedure Duration Time 0 hours 3 minutes 2 seconds Findings: Food was found in the distal esophagus. Removal of food was accomplished. The entire examined stomach was normal. No biopsies or other specimens were collected for this exam. The duodenal bulb was normal. No biopsies or other specimens were collected for this exam. Impression: - Food in the distal esophagus. - Normal stomach. No specimens collected. - Normal duodenal bulb. No specimens collected. Recommendation: - Discharge patient to home. - Full liquid diet. - Use Prilosec OTC 20 mg PO daily daily. - Continue present medications. - Repeat upper endoscopy at appointment to be scheduled to evaluate the response to therapy. - Return to my office in 1 week. Procedure Code(s): --- Professional --- 02347, Esophagogastroduodenoscopy, flexible, transoral; with removal of foreign body(s) Diagnosis Code(s): --- Professional --- T18.128A, Food in esophagus causing other injury, initial encounter T18.108A, Unspecified foreign body in esophagus causing other injury, initial encounter CPT copyright 2017 [employer]. All rights reserved. The codes documented in this report are preliminary and upon utility inspector review may be revised to meet current compliance requirements. MD Garcia Hernandez MD 08/06/2020 6:32:31 PM This report has been signed electronically. Number of Addenda: 0 Note Initiated On: 08/06/2020 5:56 PM
--- NOTE | 2020-08-06 19:11 | SUR.OPER ---
GEE BROWN RN & DR. DEY IN ROOM. PROCEDURE DONE IN ER-1.
--- NOTE | 2020-08-21 11:44 | HP.PCM_ITS ---
History of Present Illness Date of Admission: 08/06/20 85-year-old female presents to the emergency department with difficulty swallowing. Patient was eating ham last night felt like it stuck and felt like it was stuck for several hours and then she felt like she was able to swallow it but despite that she began to had continued spitting out of her secretions. She has been unable to tolerate her oral medications. She feels like she can tolerate very small sips of water. Daughter brought her in because they were concerned because she cannot take any of her medications. History of a endoscopy remotely Past Medical History Past Medical History (Chronic Problems): Chronic Problems (Last Reviewed 03/03/20 @ 14:[address] Shelton Harris MD) Weight loss (Chronic) Shortness of breath (Chronic) Hiatal hernia (Chronic) Large sliding hiatal hernia without gastroesophageal reflux. 02/2019 Atherosclerotic heart disease of [place] coronary artery without angina pectoris (Chronic) PCI-ALEXIS-LAD w/ 3.5 x 28 mm Promus Stent 02/08/2010 Paroxysmal atrial fibrillation (Chronic) SVT ablation, pulmonary vein isolation 12/31/13 ; atrial flutter ablation and PV isolation 06/22/2014 Paroxysmal atrial flutter (Chronic) SVT ablation, pulmonary vein isolation 12/31/13 ; atrial flutter ablation and PV isolation 06/22/2014 Secondary pulmonary arterial hypertension (Chronic) Essential (primary) hypertension (Chronic) Medical History: Medical History (Last Reviewed 03/03/20 @ 14:[address] Shelton Harris MD) Shortness of breath (Chronic) R06.02 Hiatal hernia (Chronic) K44.9 Large sliding hiatal hernia without gastroesophageal reflux. 02/2019 Atherosclerotic heart disease of [place] coronary artery without angina pectoris (Chronic) I25.10 PCI-ALEXIS-LAD w/ 3.5 x 28 mm Promus Stent 02/08/2010 Paroxysmal atrial fibrillation (Chronic) I48.0 SVT ablation, pulmonary vein isolation 12/31/13 ; atrial flutter ablation and PV isolation 06/22/2014 Paroxysmal atrial flutter (Chronic) I48.92 SVT ablation, pulmonary vein isolation 12/31/13 ; atrial flutter ablation and PV isolation 06/22/2014 Secondary pulmonary arterial hypertension (Chronic) I27.21 Essential (primary) hypertension (Chronic) I10 Anemia D64.9 Arthritis M19.90 Atypical atrial flutter I48.4 Back pain M54.9 Gallstones K80.20 Incisional hernia K43.2 Ovarian cyst N83.209 Abdominal pain (Resolved) R10.9 Acute bronchitis (Resolved) J20.9 Atrial fibrillation with RVR (Resolved) I48.91 Constipation (Resolved) K59.00 History of cancer of left breast Z85.3 Pharyngitis, acute (Resolved) J02.9 Atrial fibrillation and flutter (Inactive) I48.91, I48.92 Allergies etodolac Allergy (Verified 08/06/20 14:12) Nausea hydrocodone [From Vicodin] Allergy (Verified 08/06/20 14:12) CONFUSION codeine Adverse Reaction (Verified 08/06/20 14:12) Nausea/Vom/Diarrhea Home Medications: Ambulatory Orders Medication Instructions Recorded Atorvastatin Calcium 20 mg PO DAILY 01/24/17 Multivit-Min/Iron/Folic/Lutein 1 tab PO DAILY 01/24/17 [Centrum Silver Women Tablet] Timolol 0.25% [Timoptic] 1 drp EACH EYE BID 02/11/19 amiodarone 200 mg tablet 200 mg PO DAILY tab 04/14/19 brinzolamide 1 % eye 1 drp OPHTHALMIC TID 08/27/19 drops,suspension Furosemide 20 mg PO DAILY PRN 08/06/20 Latanoprostene Bunod [Vyzulta] 1 drp OP QHS 08/06/20 Netarsudil Mesylate [Rhopressa] 2.5 ml OP DAILY 08/06/20 amlodipine 10 mg tablet 10 mg PO DAILY PRN #30 tab 08/14/20 metoprolol tartrate 50 mg tablet 50 mg PO BID #180 tab 08/14/20 rivaroxaban 15 mg tablet 15 mg PO QPM #30 tab 08/14/20 Surgical History: Surgical History (Last Reviewed 03/03/20 @ 14:[address] Sehlton Harris MD) History of coronary artery stent placement (Resolved) Onset Date: 02/08/10 Z95.5 PCI-ALEXIS-LAD w/ 3.5 x 28 mm Promus Stent 02/08/2010 History of left knee replacement Z96.652 History of loop recorder Z98.890 LINQ implant @ [facility] 03/17/[address] Mazariegos History of lumpectomy of left breast Z98.890 History of cardioversion Onset Date: 01/15/19 Z98.890 11/09/18, 01/15/19 History of hernia repair Z98.890, Z87.19 History of kyphoplasty Onset Date: 03/2019 Z98.890 History of left hip replacement Z96.642 History of radiofrequency ablation procedure for cardiac arrhythmia Onset Date: 06/22/14 Z98.890 SVT ablation, pulmonary vein isolation 12/31/13 ; atrial flutter ablation and PV isolation 06/22/2014 History of right knee joint replacement Z96.651 Surgical History: herniorrhaphy, total knee arthroplasty Psychiatric History: No pertinent psych hx NURSE ORTHOPEDIC History: No pertinent NURSE ORTHOPEDIC history Lives: With Family Smoking Status: Never smoker Alcohol: None Drugs: None - *Family History Maternal Family History: Family History (Last Reviewed 03/03/20 @ 14:[address] Shetlon Harris MD) Father No family history of coronary artery disease History Items: No pertinent history Paternal Family History: Family History (Last Reviewed 03/03/20 @ 14:[address] Shelton Harris MD) Father No family history of coronary artery disease History Items: No pertinent history VTE Information - Inpt Only VTE Present on Admission: No VTE Mechan Device Prophylaxis: None VTE Pharm Prophylaxis ordered?: No Reason prophylaxis not ordered:: Treatment Not Indicated - Physical Exam Vitals/I&O's: Vital Signs Temp Pulse Resp BP Pulse Ox 97.1 F L 68 16 167/95 H 98 08/06/20 14:12 08/06/20 19:08 08/06/20 19:08 08/06/20 19:08 08/06/20 19:08 Oxygen Flow Rate (L/min) [2] 4 Oxygen Flow Rate (L/min) [1 ( 4 Initial Baseline)] Oxygen Flow Rate (L/min) 2 Oxygen Delivery Method [2] Nasal Cannula Oxygen Delivery Method [1 ( Nasal Cannula Initial Baseline)] Oxygen Delivery Method Room Air Weight: 135 lb Body Mass Index (BMI) 21.1 General: Alert, Oriented x3 Lungs: Clear to auscultation Cardiovascular: Regular rate, Regular Rhythm, No murmurs Abdomen: Bowel Sounds Present, Soft, Non Tender, Non-Distended Assessment/Plan All Active Problems (Last Reviewed 03/03/20 @ 14:[address] Shelton Harris MD) History of coronary artery stent placement (Resolved 02/08/10) Abdominal pain (Resolved) Acute bronchitis (Resolved) Atrial fibrillation with RVR (Resolved) Constipation (Resolved) Pharyngitis, acute (Resolved) Assessment: Foreign body of the esophagus Plan: EGD with foreign body removal
== END 2020-08-06 19:08 | disposition home or self-care (01) ==
PROVIDERS: Surgery; Emergency Provider Student in an Organized Health Care Education/Training Program; PCP Family Medicine
PROC: 0DJ08ZZ Inspection of Upper Intestinal Tract, Via Natural or Artificial Opening Endoscopic (ICD-10-PCS; CPT 43235; principal; 2020-08-06 18:00)
DX: T18.128A Food in esophagus causing other injury, initial encounter (principal); X58.XXXA Exposure to other specified factors, initial encounter; Y93.9 Activity, unspecified; Y92.9 Unspecified place or not applicable; I10 Essential (primary) hypertension; I25.10 Atherosclerotic heart disease of native coronary artery without angina pectoris; I48.0 Paroxysmal atrial fibrillation; I27.21 Secondary pulmonary arterial hypertension; M19.90 Unspecified osteoarthritis, unspecified site; Z85.3 Personal history of malignant neoplasm of breast; Z86.2 Personal history of diseases of the blood and blood-forming organs and certain disorders involving the immune mechanism; Z87.19 Personal history of other diseases of the digestive system; Z95.5 Presence of coronary angioplasty implant and graft; Z79.01 Long term (current) use of anticoagulants; Z79.899 Other long term (current) drug therapy
CPT/HCPCS: 43247; 71045; 96374; 99284; J1610

== ENCOUNTER 2020-10-09 14:28 | Outpatient (RCR) | payer MEDICARE, OTHER, SELFPAY ==
[2020-09-05 18:41] VITALS: BMI 22.2
== END 2020-10-09 23:59 ==
LOC: IMMUN 14:28
PROVIDERS: PCP Family Medicine; Visit Provider Family Medicine
DX: Z23 Encounter for immunization (principal)
CPT/HCPCS: 0011A; 0012A

== ENCOUNTER 2021-02-17 04:38 | Inpatient (IN) | payer MEDICARE, OTHER, SELFPAY ==
[2020-09-05 18:41] VITALS: BMI 22.2
[2021-02-17] VITALS (53 sets, daily range): BP systolic 38–131; BP diastolic 10–87; PULSE 39–74; RESP 12–24; TEMP 35–36.7; O2SAT 76–100; BMI 19.0; BMI 18.8
--- NOTE | 2021-02-17 04:43 | EKG12_ITS ---
Test Reason : DYSRHYTHMIA Blood Pressure : / mmHG Vent. Rate : 043 BPM Atrial Rate : 041 BPM P-R Int : 000 ms QRS Dur : 094 ms QT Int : 546 ms P-R-T Axes : 000 102 051 degrees QTc Int : 461 ms Junctional bradycardia Rightward axis Nonspecific ST abnormality Abnormal ECG Confirmed by RENETTA CAMACHO, SIMON ([id number]), website/blog editor GLORIA DO ([id number]) on 02/21/2021 8:54:38 AM Referred By: BB Confirmed By:SIMON JACKSON MD
--- NOTE | 2021-02-17 04:44 | EDS_ITS ---
HPI History of Present Illness Chief Complaint: Weakness Informant: patient, spouse/S.O. and EMS Onset/Context/Timing Onset: Today (JPTA) Narrative Narrative: Patient woke up in the middle of the night, needed to urinate. She got out of bed and walked to the bathroom, she felt okay. When she got to the bathroom she was having trouble getting to the toilet so her helped her, and then went to get her some clean clothes and when he came back she had passed out and had fallen into the corner of the wall/toilet, he helped to get her out of it and she was unresponsive for short period of time, she eventually came around. The patient does not recall any of that. She felt okay when she went to bed. She does not feel lightheaded now or have chest discomfort, shortness of breath, abdominal pain, but she does have some nausea. She does not think she hit her head. She is on rivaroxaban for paroxysmal atrial fibrillation/atrial flutter. It also appears that she takes metoprolol and amiodarone. EMS states that her systolic blood pressure was around 100 and her pulse has been in the 40s. When asked if her normal pulses in the 40s, they think that she has been in the 50s in the past sometimes when seen by the doctor. [facility] Medical History (Updated 02/17/21 @ 06:[address] Buster Lnadin MD) Abdominal pain Acute bronchitis Anemia Arthritis Atherosclerotic heart disease of [place] coronary artery without angina pectoris Atrial fibrillation Atrial fibrillation and flutter Atrial fibrillation with RVR Atypical atrial flutter Back pain Compression of intervertebral disc Constipation Essential (primary) hypertension Gallstones Hiatal hernia History of cancer of left breast Incisional hernia Ovarian cyst Paroxysmal atrial fibrillation Paroxysmal atrial flutter Pharyngitis, acute Secondary pulmonary arterial hypertension Shortness of breath Weight loss Home Medications [id number] 1 tab PO DAILY 01/24/17 [History Last Taken 02/11/19] timolol maleate 1 drp EACH EYE BID 02/11/19 [History Last Taken 02/11/19] brinzolamide 1 % eye drops,suspension 1 drp OPHTHALMIC TID 08/27/19 [History Last Taken Unknown] latanoprostene bunod 1 drp OP QHS 08/06/20 [History Last Taken Unknown] netarsudil 2.5 ml OP DAILY 08/06/20 [History Last Taken Unknown] amlodipine 10 mg tablet 10 mg PO DAILY PRN #30 tab 08/14/20 [Rx Last Taken Unknown] metoprolol tartrate 50 mg tablet 50 mg PO BID #180 tab 08/14/20 [Rx Last Taken Unknown] rivaroxaban 15 mg tablet 15 mg PO QPM #30 tab 08/14/20 [Rx Last Taken Unknown] docusate sodium 100 mg capsule 100 mg PO DAILY 09/05/20 [History Last Taken Unknown] furosemide 40 mg tablet 20 mg PO DAILY tab 09/05/20 [History Last Taken Unknown] inulin 2 gram chewable tablet 2 g PO BID tab 09/05/20 [History Last Taken Unknown] amiodarone 200 mg tablet 200 mg PO DAILY #90 tab 10/23/20 [Rx Last Taken Unknown] atorvastatin 20 mg tablet 20 mg PO DAILY #90 tab 01/29/21 [Rx Last Taken Unknown] polyethylene glycol 3350 [Miralax] 17 g PO DAILY 02/17/21 [History Last Taken Unknown] Allergy/AdvReac Type Severity Reaction Status Date / Time etodolac Allergy Nausea Verified 09/05/20 09:01 hydrocodone [From Vicodin] Allergy CONFUSION Verified 09/05/20 09:01 codeine AdvReac Nausea/Vom/ Verified 09/05/20 09:01 Diarrhea Family History Father No family history of coronary artery disease Surgical History History of cardioversion (01/15/19) History of coronary artery stent placement (02/08/10) History of esophagogastroduodenoscopy (EGD) (08/06/20) History of hernia repair History of kyphoplasty (03/2019) History of left hip replacement History of left knee replacement History of loop recorder History of lumpectomy of left breast History of radiofrequency ablation procedure for cardiac arrhythmia (06/22/14) History of right knee joint replacement Social History Smoking Status: Never smoker alcohol intake: current alcohol intake frequency: holidays/special occasions only Alcohol type: wine caffeine: Yes Type: coffee Number of servings: 1 ROS ROS ED Constitutional Constitutional ED: Reports as per HPI and weakness; Denies chills or fever(s) Eyes Eyes: Denies change in vision or diplopia ENT ENT ED: Denies rhinorrhea or sore throat Cardiovascular Cardiovascular: Reports orthopnea, pedal edema and other; Denies chest pain or palpitations Respiratory/Chest Respiratory/Chest: Reports orthopnea; Denies cough or dyspnea Gastrointestinal Gastrointestinal: Reports nausea; Denies abdominal pain, diarrhea or vomiting Genitourinary Genitourinary ED: Denies dysuria or hematuria Musculoskeletal Musculoskeletal: Denies back pain or neck pain Integumentary Reports Abrasions; Denies abscess or rash Neurologic Neurologic: Denies headache(s), paresthesias or weakness Psychiatric Psychiatric: Denies anxiety or suicidal thoughts EXAM Physical Exam Const Vital Signs: 02/17/21 04:38 02/17/21 04:39 02/17/21 04:56 Temperature 96.1 F L Temperature Source Temporal Pulse Rate 44 L 46 L Respiratory Rate 16 18 Respiratory Effort Non-Labored Blood Pressure 98/54 L 102/56 L Blood Pressure Mean 68 71 Pulse Ox 94 84 Oxygen Delivery Method Nasal Cannula Nasal Cannula Oxygen Flow Rate (L/min) 3 2 02/17/21 06:38 02/17/21 06:48 Temperature Temperature Source Pulse Rate 52 L 56 L Respiratory Rate 19 H 24 H Respiratory Effort Blood Pressure 72/52 L 83/61 L Blood Pressure Mean 58 68 Pulse Ox 99 90 Oxygen Delivery Method Nasal Cannula Nasal Cannula Oxygen Flow Rate (L/min) 3 3 Positive well nourished and well developed Constitutional Narrative: Conversive in full sentences. General Appearance ED: well developed and NAD HEENT Reports moist mucous membranes normocephalic and atraumatic Eyes PERRL and EOMs intact bilaterally Neck full ROM and supple Resp normal respiratory effort and clear to auscultation bilaterally Cardio regular rate, regular rhythm and no murmurs Rate: bradycardia GI non-tender and non-distended Auscultation: normoactive bowel sounds Palpation: soft Back/Spine no CVA tenderness General Back: other FROM Thoracic Spine / Upper Back: kyphosis Extremity normal to inspection Extremity Narrative: Chronically edematous lower extremities, symmetric without calf tenderness. Abrasion right lower leg anteriorly, no laceration to repair. Some serous fluid seeping from this wound. General Extremety ED: Yes edema and tenderness; Negative for pulses abnormal General Extremity: edema; Negative for pulses abnormal Neuro oriented x3, CN's II-XII intact bilaterally and no sensory deficits noted Sensorium / Orientation: awake and alert Motor Exam: strength 5/5 throughout Skin no rashes or lesions noted Skin Narrative: Chronic lower extremity wounds symmetric without signs of infection. Acute abrasion/superficial skin tear right lower leg with seeping of edematous fluid from the wound. No bleeding, no sign of infection. MDM MDM MDM Narrative Medical decision making narrative: Patient became somewhat hypoxic and required 2 L nasal cannula to keep her into the 90s. Her bradycardia remained stable in the 40s, with a junctional rhythm on the EKG which appears to be new for her. She has had ablations and cardioversions in the past for rapid atrial fib/atrial flutter, and EKGs prior to this do not show a junctional rhythm. My concern is that she is having symptomatic bradycardia which she was responsible for her syncopal episode this morning. She is on Xarelto and since she had a fall and is bradycardic, I ordered a CT of the head to rule out traumatic hemorrhage. However the patient absolutely refused to lay down even for a few seconds in order to get the CT, sitting up on the table and telling the heat treat technician that she was unable to get the scan, and she continues to states she is unable even after I discussed all of this with her. Therefore we canceled the scan, she does not have a headache, is neurologically intact and actually looks fairly good clinically although her vital signs are concerning since her pressure dropped to the 70s. Her BNP returned elevated at 243 she has never had a different measurement of this in our system before. She has no history of congestive heart failure that has been documented so far. Her chest x-ray is normal and her lungs sound clear although I am concerned she does appear to be somewhat tachypneic. Therefore, we gave her a dose of atropine to see if her bradycardia responded. The heart rate increased a little to about 57, and the blood pressure increased some to 83/61. Patient did not feel any different clinically. Discussed w/ her net ui developer Dr. Harris. He agreed w/ ICU admission, holding AV clementina blockers, monitoring the patient closely, and consulting. Discussed w/ ship engineer. Lab Data Attestation: I reviewed the patient's lab results. Labs: Laboratory Results - last 24 hr 02/17/21 02/17/21 02/17/21 04:50 04:50 04:50 WBC 7.1 RBC 3.40 L Hgb 11.0 L Hct 34.6 L MCV 101.8 H MCH 32.4 H MCHC 31.8 L RDW Std Deviation 56.8 H RDW Coeff of Vanessa 15.0 H Plt Count 250 MPV 10.5 Immature Gran % (Auto) 3.000 H Neut % (Auto) 81.0 H Lymph % (Auto) 9.4 L [place] % (Auto) 5.9 Eos % (Auto) 0.3 Baso % (Auto) 0.4 Absolute Neuts (auto) 5.8 Absolute Lymphs (auto) 0.67 L Nucleated RBC % 0 Sodium 137 Potassium 3.8 Chloride 97 L Carbon Dioxide 34.0 H Anion Gap 6 BUN 32 H Creatinine 1.64 H Estim Creat Clear Calc 21.95 Est GFR (MDRD) Af Amer 38 L Est GFR (MDRD) Non-Af 32 L BUN/Creatinine Ratio 19.5 Glucose 196 H Calcium 8.8 Troponin I High Sens 13.1 B-Natriuretic Peptide 243.1 H Urine Color Urine Clarity Urine pH Ur Specific [place] Urine Protein Urine Glucose (UA) Urine Ketones Urine Occult Blood Urine Nitrite Urine Bilirubin Urine Urobilinogen Ur Leukocyte Esterase Urine RBC Urine WBC Ur Squamous Epith Cells Amorphous Sediment Urine Bacteria Urine Mucus 02/17/21 06:02 WBC RBC Hgb Hct MCV MCH MCHC RDW Std Deviation RDW Coeff of Vanessa Plt Count MPV Immature Gran % (Auto) Neut % (Auto) Lymph % (Auto) [place] % (Auto) Eos % (Auto) Baso % (Auto) Absolute Neuts (auto) Absolute Lymphs (auto) Nucleated RBC % Sodium Potassium Chloride Carbon Dioxide Anion Gap BUN Creatinine Estim Creat Clear Calc Est GFR (MDRD) Af Amer Est GFR (MDRD) Non-Af BUN/Creatinine Ratio Glucose Calcium Troponin I High Sens B-Natriuretic Peptide Urine Color Yellow Urine Clarity Sl. Cloudy Urine pH 5.0 Ur Specific [place] 1.020 Urine Protein 100 H Urine Glucose (UA) Normal Urine Ketones Negative Urine Occult Blood 10 H Urine Nitrite Negative Urine Bilirubin Negative Urine Urobilinogen 1 H Ur Leukocyte Esterase 100 H Urine RBC 0-5 SEEN Urine WBC 10-25 SEEN Ur Squamous Epith Cells 0 SEEN Amorphous Sediment 2+ Urine Bacteria 1+ Urine Mucus 0 SEEN Radiography Chest X-Ray - ED: 1 View, Read by ED Physician, No Acute Disease and Chronic Changes Diagnostic Testing: Radiology Impression Chest X-Ray 02/17/21 05:20 IMPRESSION: No acute cardiopulmonary disease Electronically Signed: Baudilio Hinojosa DO at 6:10 EDT Tel , Service support , EKG Initial EKG: Attestation: I personally reviewed and interpreted this EKG as follows: Interpretation: No Acute Injury Pattern Comments: Junctional rhythm with nonspecific repolarization abnormalities, limited interpretation by artifact. Rate 43. Prior EKG tracings: available for review Prior: Changed Critical Care Time Critical Care Time: Yes Critical care time (excluding procedures): 30-74 minutes (32 min), Including time spent:, Discussing w/Patient &/or Family/Assistant Men'S Lacrosse Coach, Discussing w/Consultants, Arranging Admission or Transfer and Performing Direct Patient Care at Bedside Discharge Plan Dx/Rx/DC Orders Clinical Impression: Syncope, Junctional bradycardia, LAZARO (acute kidney injury), Hypotension Disposition Disposition: Acute Care Hospital [facility]
[2021-02-17 04:57] LABS: Absolute Lymphocyte Count 0.67 X10^3/uL (0.83-4.51); Absolute Neutrophil Count 5.8 X10^3/uL (2.0-7.7); Basophil# 0.03 X10^3/uL; Basophil% 0.4 % (0-1); Eosinophil# 0.02 X10^3/uL; Eosinophils% 0.3 % (0-5); Hematocrit 34.6 % (37-47); Lymphocyte # 0.67 X10^3/ul (0.83-4.51); Lymphocyte % 9.4 % (19-41); Mean Corp Hgb Conc 31.8 g/dL (32-36); Mean Corpuscular Hgb 32.4 pg (27.0-32.0); Mean Corpuscular Volume 101.8 fL (81-99); Mean Platelet Vol. 10.5 fl (6.2-12.0); Monocyte# 0.42 X10^3/uL; Monocyte% 5.9 % (0-10); NRBC Flagged by Analyzer 0 % (0-5); Neutrophil # 5.75 X10^3/uL (2.7-7.7); Platelet Count 250 K/mm3 (150-450); RBC Distribution Width SD 56.8 fl (35.1-43.9); White Blood Count 7.1 K/mm3 (4.4-11.0)
[2021-02-17 05:14] LABS: Anion Gap 6 (5-15); BUN 32 mg/dL (7-18); BUN/Creat Ratio 19.5 RATIO (10-20); Calcium,Total 8.8 mg/dL (8.5-10.1); Chloride 97 mmol/L (98-107); Creatinine, Serum 1.64 mg/dL (0.55-1.02); EST Glomerular Filtration Rate 32 mL/min (>60); Est Glom Filt Rate - Afr Amer 38 mL/min (>60); Estimated Creatinine Clearance 21.95 ml/min; Glucose 196 mg/dL (74-106); Potassium 3.8 mmol/L (3.5-5.1); Sodium Level 137 mmol/L (136-145); Troponin-I HS 13.1 pg/mL (3.0-53.7)
--- NOTE | 2021-02-17 05:20 | RAD_ITS ---
STUDY: X-RAY CHEST REASON FOR EXAM: Female, 85 years old. orthopnea TECHNIQUE: Single AP portable view of the chest. COMPARISON: 08/06/2020 FINDINGS: The lungs are clear and expanded. There is no demonstrated pleural abnormality. Normal size heart. Normal mediastinum and geovanna. Normal visualized pulmonary arteries. Normal visualized aortic arch and descending thoracic aorta. Normal visualized thoracic spine. There is degenerative osteoarthritis of the bilateral shoulders. Moderately sized hiatal hernia There is no demonstrated abnormality of the visualized soft tissue structures of the upper abdomen. RAD/Chest 1 View (Portable) IMPRESSION: No acute cardiopulmonary disease Electronically Signed: Baudilio Hinojosa DO at 6:10 EDT Tel , Service support ,
[2021-02-17 06:06] LABS: BNP,B-Type NATRIURETIC PEPTIDE 243.1 pg/mL (0-100)
[2021-02-17 06:08] LABS: Mucous, Urine 0 SEEN /hpf (<or=2+); Squamous Epithelial Cells - UA 0 SEEN /hpf (5-10)
[2021-02-17 06:09] LABS: Color, Urine Yellow (Yellow); Glucose, Dipstick Normal (Normal); Ketone-Dipstick Negative (Negative); Leukocyte Esterase-Dipstick 100 /ul (Negative); Nitrite-Dipstick Negative (Negative); Occult Blood-Urine 10 /ul (Negative); Protein-Dipstick 100 mg/dl (Negative); Urine Bilirubin Dipstick Negative (Negative); Urine Clarity Sl. Cloudy (Clear); Urine Urobilinogen 1 mg/dl (Normal)
[2021-02-17 06:16] LABS: Amorphous Sediment 2+; Bacteria 1+ /hpf (None Seen); Red Blood Cells-Urine 0-5 SEEN /hpf (0-5); White Blood Cells 10-25 SEEN /hpf (0-5)
[2021-02-17] MEDS: Atropine Sulfate 1 MG/10 ML Syringe 0.5 MG IV (06:39)
--- NOTE | 2021-02-17 07:40 | HP.PCM.HOS_ITS ---
HPI - General General Date of Admission: 02/17/21 Date of Service: 02/17/21 Chief Complaint: fall HPI Narrative YAEL TRIPP, is a 85 F who presents after being unresponsive. Earlier this morning patient was being taken to the bathroom where she slipped but did not fall was able to catch her self. The states it was due to her wearing some slippery socks walking on the tile floor. He left her on the toilet and then came back and saw her slumped against the wall unresponsive. He stated that she was out for roughly 5 to 10 minutes. He was initially concerned that she was not breathing but subsequent found that she was. No evidence of any tonic-clonic activity. He contacted EMS immediately and they arrived. He is unsure if she came to quickly or was prolonged. Patient has no history of seizure. They state that over the past year she has lost 80 pounds. Just not eating much but still taking her medications. Patient was found to be bradycardic with heart rate in the 50s as well as hypotensive. states that her heart rate, when he checks it, at home is typically in the 50s. He states that he has not checked her blood pressure and several months. In the emergency room patient did receive 2 rounds of atropine which really has not had any effect on her heart rate. EKG shows a junctional rhythm. Cardiology critical care medicine were contacted and patient is going to be admitted to the ICU. [facility] Medical History Abdominal pain Acute bronchitis Anemia Arthritis Atherosclerotic heart disease of [place] coronary artery without angina pectoris Atrial fibrillation Atrial fibrillation and flutter Atrial fibrillation with RVR Atypical atrial flutter Back pain Compression of intervertebral disc Constipation Essential (primary) hypertension Gallstones Hiatal hernia History of cancer of left breast Incisional hernia Ovarian cyst Paroxysmal atrial fibrillation Paroxysmal atrial flutter Pharyngitis, acute Secondary pulmonary arterial hypertension Shortness of breath Weight loss Home Medications [id number]-lutein 1 tab PO DAILY 01/24/17 [History Last Taken 02/11/19] timolol maleate 1 drp EACH EYE BID 02/11/19 [History Last Taken 02/11/19] brinzolamide 1 % eye drops,suspension 1 drp OPHTHALMIC TID 01/17/20 [History Last Taken Unknown] latanoprostene bunod 1 drp OP QHS 08/06/20 [History Last Taken Unknown] netarsudil 2.5 ml OP DAILY 08/06/20 [History Last Taken Unknown] amlodipine 10 mg tablet 10 mg PO DAILY PRN #30 tab 08/14/20 [Rx Last Taken Unknown] metoprolol tartrate 50 mg tablet 50 mg PO BID #180 tab 08/14/20 [Rx Last Taken Unknown] rivaroxaban 15 mg tablet 15 mg PO QPM #30 tab 08/14/20 [Rx Last Taken Unknown] docusate sodium 100 mg capsule 100 mg PO DAILY 09/05/20 [History Last Taken Unknown] furosemide 40 mg tablet 20 mg PO DAILY tab 09/05/20 [History Last Taken Unknown] inulin 2 gram chewable tablet 2 g PO BID tab 09/05/20 [History Last Taken Unknown] amiodarone 200 mg tablet 200 mg PO DAILY #90 tab 10/23/20 [Rx Last Taken Unknown] atorvastatin 20 mg tablet 20 mg PO DAILY #90 tab 01/29/21 [Rx Last Taken Unknown] polyethylene glycol 3350 [Miralax] 17 g PO DAILY 02/17/21 [History Last Taken Unknown] Allergy/AdvReac Type Severity Reaction Status Date / Time etodolac Allergy Nausea Verified 09/05/20 09:01 hydrocodone [From Vicodin] Allergy CONFUSION Verified 09/05/20 09:01 codeine AdvReac Nausea/Vom/ Verified 09/05/20 09:01 Diarrhea Family History Father No family history of coronary artery disease Surgical History History of cardioversion (01/15/19) History of coronary artery stent placement (02/08/10) History of esophagogastroduodenoscopy (EGD) (08/06/20) History of hernia repair History of kyphoplasty (03/2019) History of left hip replacement History of left knee replacement History of loop recorder History of lumpectomy of left breast History of radiofrequency ablation procedure for cardiac arrhythmia (06/22/14) History of right knee joint replacement Social History Smoking Status: Never smoker alcohol intake: current alcohol intake frequency: holidays/special occasions only Alcohol type: wine caffeine: Yes Type: coffee Number of servings: 1 ROS ROS Narrative No fever or chills. No dizziness lightheadedness. No chest pain. Patient does have shortness of breath. Patient has lower extremity edema which has been going on for about 6 months now. Patient sleeps in a recliner and has been states that her legs are essentially dependent for 90% of the day. Recently, patient is dog leash got wrapped around her left lower extremity and left lesion on her left anterior gregorio. Not eating much. 80 pound weight loss in the past year. All review of systems were negative except as mentioned above in the history of present illness and the other review of systems. Vital Signs Vital Signs Vital Signs: 02/17/21 04:38 02/17/21 04:39 02/17/21 04:56 Temperature 35.6 C L Temperature Source Temporal Pulse Rate 44 L 46 L Respiratory Rate 16 18 Respiratory Effort Non-Labored Blood Pressure 98/54 L 102/56 L Blood Pressure Mean 68 71 Pulse Ox 94 84 Oxygen Delivery Method Nasal Cannula Nasal Cannula Oxygen Flow Rate (L/min) 3 2 02/17/21 06:38 02/17/21 06:48 02/17/21 07:06 Temperature 36.7 C Temperature Source Temporal Pulse Rate 52 L 56 L 54 L Respiratory Rate 19 H 24 H 24 H Respiratory Effort Blood Pressure 72/52 L 83/61 L 74/57 L Blood Pressure Mean 58 68 62 Pulse Ox 99 90 90 Oxygen Delivery Method Nasal Cannula Nasal Cannula Nasal Cannula Oxygen Flow Rate (L/min) 3 3 3 Weight Weight: 53.5 kg Body Mass Index (BMI) 19.0 Physical Exam Narrative Kyphotic. Frail. Cachectic. Const alert General Appearance: cooperative HEENT normocephalic Eyes PERRL Neck no lymphadenopathy Resp normal respiratory effort and clear to auscultation bilaterally Cardio regular rate, regular rhythm, S1 normal heart sound and S2 normal heart sound GI normal to inspection, nondistended, normoactive bowel sounds, soft to palpation, non-tender and non-distended Extremity Extremity Narrative: Distal lower extremity edema with lymphedematous changes. Skin Skin Narrative: Does have a raised crusted dark lesion on the right anterior gregorio without surrounding erythema or discharge. Neuro CN's II-XII intact bilaterally Neuro Narrative: Keeps asking if I just starting my shift. Asked 3 times and I answered it 3 times. Peer to be a new question that she was asking each time she asked. Sensorium / Orientation: awake and alert Psych affect normal Results Lab / Micro Data Attestation: I reviewed the patient's lab results. Result Diagrams: 02/17/21 04:50 02/17/21 04:50 Labs: Laboratory Results - last 24 hr 02/17/21 02/17/21 02/17/21 04:50 04:50 04:50 WBC 7.1 RBC 3.40 L Hgb 11.0 L Hct 34.6 L MCV 101.8 H MCH 32.4 H MCHC 31.8 L RDW Std Deviation 56.8 H RDW Coeff of Vanessa 15.0 H Plt Count 250 MPV 10.5 Immature Gran % (Auto) 3.000 H Neut % (Auto) 81.0 H Lymph % (Auto) 9.4 L Sac % (Auto) 5.9 Eos % (Auto) 0.3 Baso % (Auto) 0.4 Absolute Neuts (auto) 5.8 Absolute Lymphs (auto) 0.67 L Nucleated RBC % 0 Sodium 137 Potassium 3.8 Chloride 97 L Carbon Dioxide 34.0 H Anion Gap 6 BUN 32 H Creatinine 1.64 H Estim Creat Clear Calc 21.95 Est GFR (MDRD) Af Amer 38 L Est GFR (MDRD) Non-Af 32 L BUN/Creatinine Ratio 19.5 Glucose 196 H Calcium 8.8 Troponin I High Sens 13.1 B-Natriuretic Peptide 243.1 H Urine Color Urine Clarity Urine pH Ur Specific [place] Urine Protein Urine Glucose (UA) Urine Ketones Urine Occult Blood Urine Nitrite Urine Bilirubin Urine Urobilinogen Ur Leukocyte Esterase Urine RBC Urine WBC Ur Squamous Epith Cells Amorphous Sediment Urine Bacteria Urine Mucus 02/17/21 06:02 WBC RBC Hgb Hct MCV MCH MCHC RDW Std Deviation RDW Coeff of [place]essa Plt Count MPV Immature Gran % (Auto) Neut % (Auto) Lymph % (Auto) Sac % (Auto) Eos % (Auto) Baso % (Auto) Absolute Neuts (auto) Absolute Lymphs (auto) Nucleated RBC % Sodium Potassium Chloride Carbon Dioxide Anion Gap BUN Creatinine Estim Creat Clear Calc Est GFR (MDRD) Af Amer Est GFR (MDRD) Non-Af BUN/Creatinine Ratio Glucose Calcium Troponin I High Sens B-Natriuretic Peptide Urine Color Yellow Urine Clarity Sl. Cloudy Urine pH 5.0 Ur Specific [place] 1.020 Urine Protein 100 H Urine Glucose (UA) Normal Urine Ketones Negative Urine Occult Blood 10 H Urine Nitrite Negative Urine Bilirubin Negative Urine Urobilinogen 1 H Ur Leukocyte Esterase 100 H Urine RBC 0-5 SEEN Urine WBC 10-25 SEEN Ur Squamous Epith Cells 0 SEEN Amorphous Sediment 2+ Urine Bacteria 1+ Urine Mucus 0 SEEN EKG Initial EKG: Attestation: I personally reviewed and interpreted this EKG as follows: Prior EKG tracings: available for review EKG Rhythm Intrepretation: Junctional (Bradycardia with heart rate in the 50s) Radiology Impression Chest X-Ray 02/17/21 05:20 IMPRESSION: No acute cardiopulmonary disease Electronically Signed: Baudilio Hinojosa DO at 6:10 EDT Tel , Service support , Assessment & Plan Assessment/Plan (1) Syncope: QUALIFIERS: Syncope type: unspecified Qualified Code(s): R55 - Syncope and collapse (2) Junctional bradycardia: (3) LAZARO (acute kidney injury): (4) Hypotension: QUALIFIERS: Hypotension type: unspecified hypotension type Q ualified Code(s): I95.9 - Hypotension, unspecified PLAN: 1. Syncope Doubt seizure is no evidence of seizure-like activity was identified. Patient has no prior history of seizure. Etiology may include bradycardia versus hypotension versus micturition versus vasovagal Despite her current ongoing bradycardia and hypotension patient appears fine other than her baseline confusion. Plan: * Hold potentiating medications * Monitor in the ICU * Consult cardiology as well as critical care medicine * Will give 1 L of IV fluids * Check echocardiogram 2. Junctional bradycardia states that her heart rate has been in the 50s in the past but is unclear if this is junctional or just sinus bradycardia Plan: * Hold amiodarone and metoprolol * We will hold off on additional atropine at this time 3. Acute kidney injury Presumed No baseline creatinine since February 11, 2019 was 1.02. Today it is 1.64 Plan * IV fluids * Hold furosemide * And monitor 4. Hypotension May be iatrogenic from her medications or possibly with bradycardia MAP is 64 Plan * Hold potentiating medications * IV fluids and reevaluate * Did discuss the potential need for pressor agents with the patient's . Told him that it may be necessary to keep her central venous access to be able to administer these pressors. Explained the risks of central venous access such a triple-lumen catheter would be bleeding. With her being on rivaroxaban as well as pneumothorax. I did explain them both of these risks or low particular pneumothorax. He is agreeable to proceed if it is necessary. 5. Severe protein calorie malnutrition Patient has lost 80 pounds in the past year Patient has had issues with swallowing in the past and had an EGD back in July that showed food that to be removed through the distal esophagus Plan * Check albumin * Start supplements * Consult nutrition 6. Lower extremity edema Multifactorial due to protein malnutrition plus keep her legs in a dependent position the vast majority of the day 7. Left lower extremity wound No sign of infection This is due to an abrasion from a dog leash Plan: Continue with local wound care. No indication for antibiotics at this time. 8. Atrial fibrillation Amiodarone and metoprolol being held given the bradycardia Plan: Continue with the rivaroxaban for anticoagulation but will initiate on the case procedures need to be performed today 9. VTE prophylaxis: Not indicated as patient is already on rivaroxaban 10. Advanced care planning: Spent additional 60 minutes discussing with the patient and her about advanced directives. initially said no CPR but was unsure of that. I explained to him that if her heart were to stop pursuing cardiac arrest that we would not do CPR. He would like to speak it over with his daughter before committing to DNR Comfort Care arrest at this time. I told be leaving the patient a full CODE STATUS until they tell us otherwise. Charges/Coding Visit Charges Inpatient E&M: 68118 Init Hosp L3 Procedures Hospitalists Procedures: 97200 Advncd Care Plan 30 Min
--- NOTE | 2021-02-17 08:16 | ECHOD_ITS ---
Reason For Study: Syncope Procedure This was a 2D Doppler, Color Flow transthoracic echocardiogram. Exam performed portable in ICU/CCU. Left Ventricle Normal LV size. Moderate concentric left ventricular hypertrophy. Left ventricular systolic function is normal. The estimated ejection fraction is 60 %. Stage 3 diastolic dysfunction. No regional wall motion abnormalities noted. Right Ventricle Normal RV size. Normal systolic function. Atria Normal left atrium. The right atrium is severely enlarged. Mitral Valve Normal mitral valve. Mild (1+) eccentric mitral valve insufficiency. Tricuspid Valve Failure to coapt. Annular dilatation of the tricuspid valve. Moderate (2+) tricuspid valve insufficiency. Aortic Valve Normal aortic valve. Trisinus/trileaflet aortic valve. Pulmonic Valve Normal pulmonic valve. Great Vessels Normal aortic root. The pulmonary artery is normal size. Normal inferior vena cava. Pericardium/Pleural No pericardial effusion. MMode/2D Measurements & Calculations LVIDd: 2.5 cm IVSd: 1.3 cm Ao root diam: 2.8 cm LVIDs: 1.7 cm LVPWd: 1.5 cm RVDd: 4.3 cm FS: 30.4 % LAV(MOD-bp): 53.4 ml LA A4 area: 22.6 cm2 LA dimension(2D): 4.1 cm LAV(MOD-bp) Indexed: 33.4 ml/m2 LAV(MOD-sp2): 35.1 ml LAV(MOD-sp4): 60.5 ml RA A4 area: 32.5 cm2 Doppler Measurements & Calculations MV E max edwina: 61.0 cm/sec Ao V2 max: 81.4 cm/sec LV V1 max: 56.0 cm/sec MV A max edwina: 19.5 cm/sec Ao max P.6 mmHg LV V1 max P.3 mmHg MV E/A: 3.1 PA V2 max: 86.5 cm/sec TR max edwina: 245.2 cm/sec TR max P.1 mmHg ECHO/Echo Complete Interpretation Summary Normal LV size. Moderate concentric left ventricular hypertrophy. Left ventricular systolic function is normal. The estimated ejection fraction is 60 %. Stage 3 diastolic dysfunction. Annular dilatation of the tricuspid valve. Moderate (2+) tricuspid valve insufficiency. Mild (1+) eccentric mitral valve insufficiency. Ordering Physician: Jeff Rodriguez Referring Physician: Dillon Salgado Performed By: Aleyda Cuh RDCS
--- NOTE | 2021-02-17 08:49 | CON.PCM.CC_ITS ---
Assessment & Plan Assessment/Plan (1) Syncope: QUALIFIERS: Syncope type: unspecified Qualified Code(s): R55 - Syncope and collapse (2) Junctional bradycardia: (3) Hypotension: QUALIFIERS: Hypotension type: unspecified hypotension type Qualified Code(s): I95.9 - Hypotension, unspecified (4) Secondary pulmonary arterial hypertension: (5) Essential (primary) hypertension: PLAN: RECOMMENDATIONS: 1. Hold amiodarone and metoprolol 2. Check echocardiogram 3. Hold on aggressive fluid resuscitation if possible 4. Speech evaluation 5. Potentially use dopamine if pressors required IMPRESSIONS: 1. Syncope secondary to junctional bradycardia secondary to medication Unclear etiology of junctional bradycardia at this time. Patient does have a history of ablations in the past, but accumulation of amiodarone and metoprolol all are suspected. We will hold these medications. Continue to monitor blood pressures. Cannot exclude the need for peripheral dopamine for a short period of time. Would prefer dopamine over Levophed as this would result in more tachycardia. Will place atropine at the bedside. Cardiology has been consulted. Echocardiogram has been ordered 2. Acute kidney injury Patient was significant lower extremity edema and elevation of creatinine. Patient is on Lasix at baseline and this may have contributed to acute kidney injury initially. We will continue to support the blood pressure and monitor closely. No indication for renal replacement therapy at this time. 3. Hypotension secondary to problem #1 Will try to minimize IV fluids given patient's lower extremity edema and need for supplemental oxygen. Patient may require dopamine as a pressor if does not respond to taking off baseline antihypertensives. 4. Severe protein calorie malnutrition/left lower leg abrasion/A. fib/advanced age/kyphosis Complicates care, management, recovery and prognosis. HPI Consult Data Date of Consult: 02/17/21 HPI Narrative HPI Narrative: YAEL TRIPP is an 85 F with past medical history listed below, who presents to [facility] on 02/17/2021 secondary to weakness. Patient reportedly had difficulty getting to the bathroom overnight and had to be held by her . Patient then reportedly went to get some clean close and had passed out and fallen on the corner of the toilet. Patient was unresponsive for a short period of time, but aroused spontaneously. Patient has no recollection of this event but went back to bed. Patient reportedly currently denies any lightheadedness or chest discomfort. Patient is denying any shortness of breath, but is requiring supplemental oxygen. Patient is on anticoagulation secondary to history of A. fib. Patient takes metoprolol and amiodarone routinely. On EMS arrival, patient was noted to have a systolic blood pressure around 100 and a pulse in the 40s. In the ER, patient was noted to be bradycardic and hypotensive. Patient's lowest documented blood pressure was 72/52 and she was requiring 3 L nasal cannula to maintain saturations. No fevers have been noted. EKG was suggestive of a junctional rhythm and patient does have a history of ablations and cardioversions in the past. Patient had refused a CT of the head to evaluate for intracranial hemorrhage, but was not reporting any headache. Laboratory d lionel showed no leukocytosis, but anemia of 11. Bicarbonate was elevated at 34 and creatinine was elevated at 1.64 with a BNP of 243. Urinalysis was relatively unremarkable and chest x-ray showed no acute pulmonary disease. Patient reports that she has had increasing lower extremity edema over the last 2 to 3 months. Patient states she had talked with a nurse practitioner at her PCPs office about it, but had not changed her medications recently. Patient denies any sick contacts. Patient does not report any history of renal problems in the past. Patient is not reporting any syncope. Patient does report that she has had issues with food getting caught in her throat previously. Patient d oes have significant kyphosis at baseline. Review of systems otherwise negative from a constitutional, HEENT, respiratory, cardiovascular, GI, genitourinary, musculoskeletal, skin, neurologic, psychi atric and hematologic system unless stated above. [facility] Medical History Abdominal pain Acute bronchitis Anemia Arthritis Atherosclerotic heart disease of [place] coronary artery without angina pectoris Atrial fibrillation Atrial fibrillation and flutter Atrial fibrillation with RVR Atypical atrial flutter Back pain Compression of intervertebral disc Constipation Essential (primary) hypertension Gallstones Hiatal hernia History of cancer of left breast Incisional hernia Ovarian cyst Paroxysmal atrial fibrillation Paroxysmal atrial flutter Pharyngitis, acute Secondary pulmonary arterial hypertension Shortness of breath Swallowing difficulty Weight loss Home Medications [id number] 1 tab PO DAILY 01/24/17 [History Last Taken 02/11/19] timolol maleate 1 drp EACH EYE BID 02/11/19 [History Last Taken 02/11/19] brinzolamide 1 % eye drops,suspension 1 drp OPHTHALMIC TID 08/27/19 [History Last Taken Unknown] latanoprostene bunod 1 drp OP QHS 08/06/20 [History Last Taken Unknown] netarsudil 2.5 ml OP DAILY 08/06/20 [History Last Taken Unknown] amlodipine 10 mg tablet 10 mg PO DAILY PRN #30 tab 08/14/20 [Rx Last Taken Un known] metoprolol tartrate 50 mg tablet 50 mg PO BID #180 tab 08/14/20 [Rx Last Taken Unknown] rivaroxaban 15 mg tablet 15 mg PO QPM #30 tab 08/14/20 [Rx Last Taken Unknown] docusate sodium 100 mg capsule 100 mg PO DAILY 09/05/20 [History Last Taken Unknown] furosemide 40 mg tablet 20 mg PO DAILY tab 09/05/20 [History Last Taken Unknown] inulin 2 gram chewable tablet 2 g PO BID tab 09/05/20 [History Last Taken Unknown] amiodarone 200 mg tablet 200 mg PO DAILY #90 tab 10/23/20 [Rx Last Taken Un known] atorvastatin 20 mg tablet 20 mg PO DAILY #90 tab 01/29/21 [Rx Last Taken Unknown] polyethylene glycol 3350 [Miralax] 17 g PO DAILY 02/17/21 [History Last Taken Unknown] Allergy/AdvReac Type Severity Reaction Status Date / Time etodolac Allergy Nausea Verified 09/05/20 09:01 hydrocodone [From Vicodin] Allergy CONFUSION Verified 09/05/20 09:01 codeine AdvReac Nausea/Vom/ Verified 09/05/20 09:01 Diarrhea Family History Father No family history of coronary artery disease Surgical History History of cardioversion (01/15/19) History of coronary artery stent placement (02/08/10) History of esophagogastroduodenoscopy (EGD) (08/06/20) History of hernia repair History of kyphoplasty (03/2019) History of left hip replacement History of left knee replacement History of loop recorder History of lumpectomy of left breast History of radiofrequency ablation procedure for cardiac arrhythmia (06/22/14) History of right knee joint replacement Social History Smoking Status: Never smoker alcohol intake: current alcohol intake frequency: holidays/special occasions only Alcohol type: wine caffeine: Yes Type: coffee Number of servings: 1 ROS ROS Narrative See HPI Physical Exam Const alert, oriented x3 and no apparent distress General Appearance: cooperative and well developed HEENT normocephalic, head/scalp atraumatic and moist oral mucous membranes Eyes PERRL and EOMs intact bilaterally Neck full ROM and no lymphadenopathy Chest Chest Narrative: Significant kyphosis noted Resp no use of accessory muscles Effort and Inspection: able to speak in complete sentences Auscultation: rales and diminished lung sounds; Negative for rhonchi or wheezes Percussion: Negative for dullness Cardio regular rate, regular rhythm, S1 normal heart sound, S2 normal heart sound, no murmurs, no rub and no gallops GI normal to inspection, nondistended, normoactive bowel sounds no CVA tenderness Extremity General Extremity: edema bilateral lower extremity (3+); Negative for clubbing or cyanosis Skin no rashes or lesions noted Neuro oriented x3, CN's II-XII intact bilaterally, moves all extremities and no focal motor deficits Psych cooperative and affect normal Lab / Micro Data Result Diagrams: 02/17/21 04:50 02/17/21 04:50 Labs: Laboratory Results - last 24 hr 02/17/21 02/17/21 02/17/21 04:50 04:50 04:50 WBC 7.1 RBC 3.40 L Hgb 11.0 L Hct 34.6 L MCV 101.8 H MCH 32.4 H MCHC 31.8 L RDW Std Deviation 56.8 H RDW Coeff of Vanessa 15.0 H Plt Count 250 MPV 10.5 Immature Gran % (Auto) 3.000 H Neut % (Auto) 81.0 H Lymph % (Auto) 9.4 L [place]acy % (Auto) 5.9 Eos % (Auto) 0.3 Baso % (Auto) 0.4 Absolute Neuts (auto) 5.8 Absolute Lymphs (auto) 0.67 L Nucleated RBC % 0 Sodium 137 Potassium 3.8 Chloride 97 L Carbon Dioxide 34.0 H Anion Gap 6 BUN 32 H Creatinine 1.64 H Estim Creat Clear Calc 21.95 Est GFR (MDRD) Af Amer 38 L Est GFR (MDRD) Non-Af 32 L BUN/Creatinine Ratio 19.5 Glucose 196 H Calcium 8.8 Troponin I High Sens 13.1 B-Natriuretic Peptide 243.1 H Urine Color Urine Clarity Urine pH Ur Specific Sparks Urine Protein Urine Glucose (UA) Urine Ketones Urine Occult Blood Urine Nitrite Urine Bilirubin Urine Urobilinogen Ur Leukocyte Esterase Urine RBC Urine WBC Ur Squamous Epith Cells Amorphous Sediment Urine Bacteria Urine Mucus 02/17/21 06:02 WBC RBC Hgb Hct MCV MCH MCHC RDW Std Deviation RDW Coeff of Vanessa Plt Count MPV Immature Gran % (Auto) Neut % (Auto) Lymph % (Auto) Willacy % (Auto) Eos % (Auto) Baso % (Auto) Absolute Neuts (auto) Absolute Lymphs (auto) Nucleated RBC % Sodium Potassium Chloride Carbon Dioxide Anion Gap BUN Creatinine Estim Creat Clear Calc Est GFR (MDRD) Af Amer Est GFR (MDRD) Non-Af BUN/Creatinine Ratio Glucose Calcium Troponin I High Sens B-Natriuretic Peptide Urine Color Yellow Urine Clarity Sl. Cloudy Urine pH 5.0 Ur Specific Sparks 1.020 Urine Protein 100 H Urine Glucose (UA) Normal Urine Ketones Negative Urine Occult Blood 10 H Urine Nitrite Negative Urine Bilirubin Negative Urine Urobilinogen 1 H Ur Leukocyte Esterase 100 H Urine RBC 0-5 SEEN Urine WBC 10-25 SEEN Ur Squamous Epith Cells 0 SEEN Amorphous Sediment 2+ Urine Bacteria 1+ Urine Mucus 0 SEEN Radiology Impression Chest X-Ray 02/17/21 05:20 IMPRESSION: No acute cardiopulmonary disease Electronically Signed: Baudilio Hinojosa DO at 6:10 EDT Tel , Service support , Charges/Coding Visit Charges Inpatient E&M: 24969 Init Hosp L3
[2021-02-17 08:59] LABS: Troponin-I HS 47.1 pg/mL (3.0-53.7)
[2021-02-17] MEDS: 0.9% Normal Saline 1,000 ML 75 ML IV (09:24)
[2021-02-17] MEDS: Docusate Sodium 100 MG Capsule PO (09:29)
[2021-02-17] MEDS: Polyethylene Glycol 3350 17 GM PACKET PO (09:29)
--- NOTE | 2021-02-17 09:41 | NT.THERAPY_ITS ---
Medical Nutrition Therapy - History Nutrition Services has been consulted to:: Manage nutrient details of diet order Current diet/nutrition support order:: Regular- pureed/ thin liquids. Ensure Enlive 120mL 4x/day - Anthropometric Measurements Height:: 5 ft 6 in Weight:: 52.8 kg Body Mass Index (BMI):: 18.8 - Relevant Labs Relevant Labs:: RBC 3.40 M/mm3 (4.2-5.4) L 02/17/21 04:50 Hgb 11.0 g/dL (12.0-15.0) L 02/17/21 04:50 Hct 34.6 % (37-47) L 02/17/21 04:50 MCV 101.8 fL (81-99) H 02/17/21 04:50 MCH 32.4 pg (27.0-32.0) H 02/17/21 04:50 MCHC 31.8 g/dL (32-36) L 02/17/21 04:50 RDW Std Deviation 56.8 fl (35.1-43.9) H 02/17/21 04:50 RDW Coeff of Vanessa 15.0 % (11.6-14.6) H 02/17/21 04:50 Immature Gran % (Auto) 3.000 % (0.0-0.9) H 02/17/21 04:50 Neut % (Auto) 81.0 % (47-70) H 02/17/21 04:50 Lymph % (Auto) 9.4 % (19-41) L 02/17/21 04:50 Absolute Lymphs (auto) 0.67 X10^3/uL (0.83-4.51) L 02/17/21 04:50 Chloride 97 mmol/L (98-107) L 02/17/21 04:50 Carbon Dioxide 34.0 mmol/L (21.0-32.0) H 02/17/21 04:50 BUN 32 mg/dL (7-18) H 02/17/21 04:50 Creatinine 1.64 mg/dL (0.55-1.02) H 02/17/21 04:50 Est GFR (MDRD) Af Amer 38 mL/min (>60) L 02/17/21 04:50 Est GFR (MDRD) Non-Af 32 mL/min (>60) L 02/17/21 04:50 Glucose 196 mg/dL (74-106) H 02/17/21 04:50 B-Natriuretic Peptide 243.1 pg/mL (0-100) H 02/17/21 04:50 - Assessment Food and Nutrient Intake: Pt states she has not been eating very much over past 3-4 months. Pt states she has little appetite. Thinks she has lost ~80# over past 1 year. UBW ~190# and CBW 116.4#-73.6#/39% wt loss is significant for severe malnutrition. - Nutrition Diagnosis: Clinical Problem Chronic Disease or Condition Related Malnutrition Clinical Problem - Etiology: severe, chronic malnutrition r/t inadequate energy intake d/t decreased appetite Clinical Problem - Signs/Symptoms: as evidenced by estimated PO intake meeting <50% of nutritional needs >3 months, unintentional wt loss of 73.6#/39% x 1 year, upon physical exam, severe muscle wasting/fat loss appreciated in clavicles, ribs, temporal region; protrusion of acromion process, BMI 18.8 Status: Active Problem - Protein Calorie Malnutrition Evidence of Malnutrition Exists: Yes Severe Protein Calorie Malnutrition:: Chronic - Nutrition Intervention Nutrition Prescription: [id number] calories/day (1.3xRMR). 50-60 g protein/day (1.0-1.1 g/kg). 1320mL fluid/day (25mL/kg) - Food / Nutrient Delivery Interventions Summary of nutrition intervention:: Provide oral nutrition supplement Nutrition support ordered as / adjusted to:: recommend regular diet- texture/consistency per FOOD SERVICE ORDER CLERK. Encourage Ensure Enlive w/ medpass; will add Ensure Pudding or Magic Cup w/ lunch and dinner - MNT Monitoring Active Nutrition Patient: Yes Nutrition Status: Requires Follow Up 3-5 Days
[2021-02-17] MEDS: CLARIFY ORDER NOTE (10:31)
[2021-02-17] MEDS: DOPamine IV 800 MG/250 ML IV.SOLN. CONT INF (10:49)
--- NOTE | 2021-02-17 11:10 | CASEMGMT ---
RN [facility] Face to Face with patient for initial transition planning/care coordination assessment. RN CM introduced self and role at [facility]. Patient lying in bed, alert and oriented. Patient willing to participate in assessment and is able to answer all questions appropriately. Care providers, pharmacy, and demographics verified. Patient wishes to discharge home, with possible HHC pending progress with therapy. Patient was provided a list of HHC providers including quality and resource use data and consistent with the patient?s preferred geographic region, medical needs, and insurance network. Patient states she has no further needs or concerns at this time. CM to follow for discharge planning needs that may arise. 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 Patient states she is independent for toileting. Private aides come 3 days per week for 3 hours per day. Transportation: DME/HHC: Patient states she has shower chair, raised toilet, grab bars, and walker at home. Patient declines previous HHC or SNF. Disposition Plan: Patient to discharge home with family support and follow-up plans in place. Will monitor for need for HHC pending progress with therapy. Estelle SALMERON, RN, CM
[2021-02-17] MEDS: Ondansetron 4 MG/2 ML Vial IV (11:22)
[2021-02-17] MEDS: 0.9% Saline Lock 10 ML Syringe IV (11:22)
[2021-02-17] MEDS: Rivaroxaban 15 MG Tablet PO (11:22)
--- NOTE | 2021-02-17 11:25 | CON.PCM.CA_ITS ---
Assessment & Plan Assessment/Plan (1) Junctional bradycardia: PLAN: She does have evidence of junctional bradycardia which is likely due to the beta-jeff as well as the amiodarone on top of the reduced renal function. Recommendations are to discontinue these medications at this particular time. Would like to start dopamine and titrate up to a heart rate of 55 to 60 bpm while we hold off on the medications. Depending on the progress a decision will be made as to whether she needs a permanent pacemaker or not. (2) Hypotension: QUALIFIERS: Hypotension type: unspecified hypotension type Qualified Code(s): I95.9 - Hypotension, unspecified PLAN: She is noted to be hypotensive at this particular time. It is likely on account of being dehydrated. She is cautiously being hydrated as well as being started on pressor agents. An echocardiogram performed today demonstrates preserved left ventricular systolic function. She does have significant tricuspid regurgitation however. (3) History of coronary artery stent placement: PLAN: She is status post previous angioplasty and stenting however does not appear to have had any angina. We will continue with current medical therapy. (4) Paroxysmal atrial fibrillation: PLAN: She does have evidence of atrial fibrillation and was on anticoagula tion as well as beta-jeff and amiodarone. We will hold the anticoagulation for now in case we need to put in a permanent pacemaker. Due to the bradycardic rates would also discontinue the beta-jeff and the amiodarone temporarily. (5) Essential (primary) hypertension: PLAN: Her blood pressure appears to be low at this time and we will try and supported with dopamine. Antihypertensives will be held for now. Thank you for allowing me to participate in the care of your patient. Please don't hesitate to call if any issues arise. HPI Consult Data Date of Consult: 02/17/21 HPI Narrative HPI Narrative: YAEL TRIPP, is a 85 F who presents to the emergency room after having fallen while getting up to go to the bathroom. She said that she had been feeling well and did not notice any change in her cardiac disposition. She had not noticed any low pulse. She had been mildly short of breath and had also had some pedal edema. She presented to the emergency room and was noted to be bradycardic and hypotensive with an elevated natruretic peptide level. She was admitted to the intensive care unit. I had been called for further evaluation. Her heart rate was noted to be in a junctional rhythm. She had previously been on amiodarone as well as beta-jeff. She has also been anticoagulated. She has a history of coronary artery disease status post angioplasty and stenting of a high-grade lesion in her LAD in 2009, atrial fibrillation status post cardioversion and ablation in December 2013, NITHYA cardioversion in January 2017, and DCCV in May 2017, August 2017, and November 2018. She has been doing fairly well since her last visit. Her last DC cardioversion was in January 2019. After that she was referred to the [facility] to see whether she would be a candidate for re-ablation. The manufacturing technician reviewed everything and it was decided that she should go back on amiodarone 200 mg a day, increase Xarelto to 20 mg a day. The diltiazem was discontinued. [facility] Medical History Abdominal pain Acute bronchitis Anemia Arthritis Atherosclerotic heart disease of [place] coronary artery without angina pectoris Atrial fibrillation Atrial fibrillation and flutter Atrial fibrillation with RVR Atypical atrial flutter Back pain Compression of intervertebral disc Constipation Essential (primary) hypertension Gallstones Hiatal hernia History of cancer of left breast Incisional hernia Ovarian cyst Paroxysmal atrial fibrillation Paroxysmal atrial flutter Pharyngitis, acute Secondary pulmonary arterial hypertension Shortness of breath Swallowing difficulty Weight loss Home Medications crsvsuia-iop-grlh-FA-lutein 1 tab PO DAILY 01/24/17 [History Last Taken 02/11/19] timolol maleate 1 drp EACH EYE BID 02/11/19 [History Last Taken 02/11/19] brinzolamide 1 % eye drops,suspension 1 drp OPHTHALMIC TID 08/27/19 [History Last Taken Unknown] latanoprostene bunod 1 drp OP QHS 08/06/20 [History Last Taken Unknown] netarsudil 2.5 ml OP DAILY 08/06/20 [History Last Taken Unknown] amlodipine 10 mg tablet 10 mg PO DAILY PRN #30 tab 08/14/20 [Rx Last Taken Unknown] metoprolol tartrate 50 mg tablet 50 mg PO BID #180 tab 08/14/20 [Rx Last Taken Unknown] rivaroxaban 15 mg tablet 15 mg PO QPM #30 tab 08/14/20 [Rx Last Taken Unknown] docusate sodium 100 mg capsule 100 mg PO DAILY 09/05/20 [History Last Taken Unknown] furosemide 40 mg tablet 20 mg PO DAILY tab 09/05/20 [History Last Taken Unknown] inulin 2 gram chewable tablet 2 g PO BID tab 09/05/20 [History Last Taken Unknown] amiodarone 200 mg tablet 200 mg PO DAILY #90 tab 10/23/20 [Rx Last Taken Unknown] atorvastatin 20 mg tablet 20 mg PO DAILY #90 tab 01/29/21 [Rx Last Taken Unknown] polyethylene glycol 3350 [Miralax] 17 g PO DAILY 02/17/21 [History Last Taken Unknown] Allergy/AdvReac Type Severity Reaction Status Date / Time etodolac Allergy Nausea Verified 09/05/20 09:01 hydrocodone [From Vicodin] Allergy CONFUSION Verified 09/05/20 09:01 codeine AdvReac Nausea/Vom/ Verified 09/05/20 09:01 Diarrhea Family History Father No family history of coronary artery disease Surgical History History of cardioversion (01/15/19) History of coronary artery stent placement (02/08/10) History of esophagogastroduodenoscopy (EGD) (08/06/20) History of hernia repair History of kyphoplasty (03/2019) History of left hip replacement History of left knee replacement History of loop recorder History of lumpectomy of left breast History of radiofrequency ablation procedure for cardiac arrhythmia (06/22/14) History of right knee joint replacement Social History Smoking Status: Never smoker alcohol intake: current alcohol intake frequency: holidays/special occasions only Alcohol type: wine caffeine: Yes Type: coffee Number of servings: 1 ROS Constitutional Constitutional: Denies fever(s) or weight loss Eyes Eyes: Reports as per HPI ENT HEENT: Reports as per HPI Cardiovascular Cardiovascular: Reports other Respiratory/Chest Respiratory/Chest: Reports other Gastrointestinal Gastrointestinal: Denies change in bowel habits, nausea, vomiting or weight changes Genitourinary Genitourinary: Denies difficulty urinating Musculoskeletal Musculoskeletal: Denies joint stiffness or muscle weakness Integumentary Integumentary: Denies lesions Neurologic Neurologic: Denies dizziness or syncope Psychiatric Psychiatric: Denies anxiety Endocrine Endocrinology: Denies excessive sweating or fatigue Hematologic/Lymphatic Hematologic/Lymphatic: Denies anemia Allergic/Immunologic Allergic/Immunologic: Denies seasonal rhinorrhea Physical Exam Const oriented x3 and healthy appearing Orientation / Consciousness: awake HEENT normocephalic Eyes PERRL and conjunctivae normal Neck supple, no JVD and no carotid bruits Chest inspection of chest normal Resp normal respiratory effort and clear to auscultation bilaterally Cardio Palpation: normal PMI Rate: regular rate Rhythm: regular rhythm Heart Sounds: S1 normal and S2 normal Peripheral Pulses: pulses 2+ throughout GI normal to inspection, nondistended, normoactive bowel sounds Extremity normal to inspection Extremity Narrative: 2+ bilateral pedal edema General Extremity: edema bilateral Psych mental status grossly normal Objective Data Vital Signs: Vital Signs Temp Pulse Resp BP Pulse Ox 96.3 F L 47 L 20 H 64/34 L 100 02/17/21 08:35 02/17/21 10:00 02/17/21 10:00 02/17/21 10:49 02/17/21 09:30 Oxygen Flow Rate (L/min) 2 Oxygen Delivery Method Nasal Cannula Weight: 116 lb 6.465 oz Body Mass Index (BMI) 18.8 Intake & Output: Intake and Output for Last 24 Hours 02/15/21 02/16/21 02/17/21 23:59 23:59 23:59 Intake Total 60 / 60 Balance 60 / 60 Lab / Micro Data Result Diagrams: 02/17/21 04:50 02/17/21 04:50 Labs: Laboratory Results - last 24 hr 02/17/21 02/17/21 02/17/21 04:50 04:50 04:50 WBC 7.1 RBC 3.40 L Hgb 11.0 L Hct 34.6 L MCV 101.8 H MCH 32.4 H MCHC 31.8 L RDW Std Deviation 56.8 H RDW Coeff of Vanessa 15.0 H Plt Count 250 MPV 10.5 Immature Gran % (Auto) 3.000 H Neut % (Auto) 81.0 H Lymph % (Auto) 9.4 L [place] % (Auto) 5.9 Eos % (Auto) 0.3 Baso % (Auto) 0.4 Absolute Neuts (auto) 5.8 Absolute Lymphs (auto) 0.67 L Nucleated RBC % 0 Sodium 137 Potassium 3.8 Chloride 97 L Carbon Dioxide 34.0 H Anion Gap 6 BUN 32 H Creatinine 1.64 H Estim Creat Clear Calc 21.95 Est GFR (MDRD) Af Amer 38 L Est GFR (MDRD) Non-Af 32 L BUN/Creatinine Ratio 19.5 Glucose 196 H Calcium 8.8 Troponin I High Sens 13.1 B-Natriuretic Peptide 243.1 H Urine Color Urine Clarity Urine pH Ur Specific Eagle Urine Protein Urine Glucose (UA) Urine Ketones Urine Occult Blood Urine Nitrite Urine Bilirubin Urine Urobilinogen Ur Leukocyte Esterase Urine RBC Urine WBC Ur Squamous Epith Cells Amorphous Sediment Urine Bacteria Urine Mucus 02/17/21 02/17/21 06:02 08:35 WBC RBC Hgb Hct MCV MCH MCHC RDW Std Deviation RDW Coeff of Vanessa Plt Count MPV Immature Gran % (Auto) Neut % (Auto) Lymph % (Auto) Refug[place] % (Auto) Eos % (Auto) Baso % (Auto) Absolute Neuts (auto) Absolute Lymphs (auto) Nucleated RBC % Sodium Potassium Chloride Carbon Dioxide Anion Gap BUN Creatinine Estim Creat Clear Calc Est GFR (MDRD) Af Amer Est GFR (MDRD) Non-Af BUN/Creatinine Ratio Glucose Calcium Troponin I High Sens 47.1 B-Natriuretic Peptide Urine Color Yellow Urine Clarity Sl. Cloudy Urine pH 5.0 Ur Specific Eagle 1.020 Urine Protein 100 H Urine Glucose (UA) Normal Urine Ketones Negative Urine Occult Blood 10 H Urine Nitrite Negative Urine Bilirubin Negative Urine Urobilinogen 1 H Ur Leukocyte Esterase 100 H Urine RBC 0-5 SEEN Urine WBC 10-25 SEEN Ur Squamous Epith Cells 0 SEEN Amorphous Sediment 2+ Urine Bacteria 1+ Urine Mucus 0 SEEN Cardiology Labs/Tests 02/17/21 04:50: WBC 7.1, RBC 3.40 L, Hgb 11.0 L, Hct 34.6 L, MCV 101.8 H, MCH 32.4 H, MCHC 31.8 L, Plt Count 250, MPV 10.5, Immature Gran % (Auto) 3.000 H, Neut % (Auto) 81.0 H, Lymph % (Auto) 9.4 L, [place] % (Auto) 5.9, Eos % (Auto) 0.3, Baso % (Auto) 0.4, Absolute Neuts (auto) 5.8, Nucleated RBC % 0 02/17/21 04:50: Sodium 137, Potassium 3.8, Chloride 97 L, Carbon Dioxide 34.0 H, Anion Gap 6, BUN 32 H, Creatinine 1.64 H, Est GFR (MDRD) Af Amer 38 L, Est GFR (MDRD) Non-Af 32 L, BUN/Creatinine Ratio 19.5, Glucose 196 H, Calcium 8.8 02/17/21 04:50: B-Natriuretic Peptide 243.1 H 02/17/21 06:02: Urine Color Yellow, Urine Clarity Sl. Cloudy, Urine pH 5.0, Ur Specific Eagle 1.020, Urine Protein 100 H, Urine Glucose (UA) Normal, Urine Ketones Negative, Urine Occult Blood 10 H, Urine Nitrite Negative, Urine Bilirubin Negative, Urine Urobilinogen 1 H, Ur Leukocyte Esterase 100 H, Urine RBC 0-5 SEEN, Urine WBC 10-25 SEEN Rhythm: EKG: ECHO: Stress Test: Cardiac Cath: PCI: CT Surgery: Holter monitor: EPS: PPM: CXR: Chest CT Scan: Radiography Diagnostic Testing: Radiology Impression Chest X-Ray 02/17/21 05:20 IMPRESSION: No acute cardiopulmonary disease Electronically Signed: Baudilio Hinojosa DO at 6:10 EDT Tel , Service support ,
[2021-02-17] MEDS: TITRATION PARAMETER CHANGE 1 EACH IV (11:51)
[2021-02-17 12:35] LABS: Troponin-I HS 102.2 pg/mL (3.0-53.7)
[2021-02-17] MEDS: Dorzolamide 2% 10ml Bottle 1 DRP OPHTHALMIC (13:30)
[2021-02-17 14:01] LABS: Bedside Glucose 143 mg/dL (70-110)
[2021-02-17] MEDS: Etomidate 20 MG/10 ML Vial 10 MG IV (14:02)
[2021-02-17] MEDS: Succinylcholine Chloride 200 MG/10 ML Vial 100 MG IV (14:03)
--- NOTE | 2021-02-17 14:27 | NURSING ---
Dr. Rodriguez at bedside for central line placement.
--- NOTE | 2021-02-17 14:27 | NURSING ---
Noted to be bradycardic, 40's, on monitor with significant rhythm change. Upon checking on pt, found blue and unresponsive, unable to palpate carotid pulse, Code mauro called. CPR started.
--- NOTE | 2021-02-17 14:40 | CASEMGMT ---
SOCIAL WORK Code Blue Responded to Code Samuel in room ICU 1. Dr. Rodriguez on phone with patient's upon entering unit. SW remained available for needs. Martha Hebert, EXPLOSIVE TECHNICIAN, OFFICE AUDITOR
[2021-02-17] MEDS: Propofol 10MG/Ml 1,000 MG/100 ML Bottle 3.2 MG CONT INF (15:00)
--- NOTE | 2021-02-17 15:38 | PN_ITS ---
Progress Note Came back to sleep patient after CODE BLUE Physical Exam Const Constitutional Narrative: Patient intubated Orientation / Consciousness: obtunded HEENT normocephalic Eyes PERRL and conjunctivae normal Neck supple, no JVD and no carotid bruits Chest inspection of chest normal Resp normal respiratory effort and clear to auscultation bilaterally Cardio Palpation: normal PMI Rate: regular rate Rhythm: regular rhythm Heart Sounds: S1 normal and S2 normal Peripheral Pulses: pulses 2+ throughout GI normal to inspection, nondistended, normoactive bowel sounds Extremity normal to inspection General Extremity: edema bilateral Psych mental status grossly normal Assessment & Plan Assessment/Plan (1) Junctional bradycardia: PLAN: She does have evidence of junctional bradycardia which is likely due to the beta-jeff as well as the amiodarone on top of the reduced renal function. Recommendations are to discontinue these medications at this particular time. Would like to start dopamine and titrate up to a heart rate of 55 to 60 bpm while we hold off on the medications. Depending on the progress a decision will be made as to whether she needs a permanent pacemaker or not. (2) Hypotension: QUALIFIERS: Hypotension type: unspecified hypotension type Qualified Code(s): I95.9 - Hypotension, unspecified PLAN: She is noted to be hypotensive at this particular time. It is likely on account of being dehydrated. She is cautiously being hydrated as well as being started on pressor agents. An echocardiogram performed today demonstrates preserved left ventricular systolic function. She does have significant tricuspid regurgitation however. (3) History of coronary artery stent placement: PLAN: She is status post previous angioplasty and stenting however does not appear to have had any angina. We will continue with current medical therapy. (4) Paroxysmal atrial fibrillation: PLAN: She does have evidence of atrial fibrillation and was on anticoagulation as well as beta-jeff and amiodarone. We will hold the anticoagulation for now in case we need to put in a permanent pacemaker. Due to the bradycardic rates would also discontinue the beta-jeff and the amiodarone temporarily. (5) Essential (primary) hypertension: PLAN: Her blood pressure appears to be low at this time and we will try and supported with dopamine. Antihypertensives will be held for now. Addendum: Patient is noted to have gone into pulseless electrical activity early on and required intubation. It was likely on the basis of hypoxia. Patient's heart rhythm has improved. Attempts to put a central line were unsuccessful at this time. Blood pressure still on the hypotensive side. I had an extensive discu ssion with the patient's as well as her daughter Cheryl regarding the overall prognosis. They both do agree that the short to medium term prognosis is not good. They are therefore comfortable with no further CPR if the need should arise, they should continue with medications and comfort care. She should continue to be intubated for now and they will make a further decision within the next 24 hours as to whether they will transition her into hospice. All parties expressed understanding. Above discussed with nursing staff as well as hospitalist. Thank you for allowing me to participate in the care of your patient. Please don't hesitate to call if any issues arise.
--- NOTE | 2021-02-17 15:46 | NURSING ---
After several attempt, Dr. Rodriguez unable to thread central line, AccessRN called and PICC RN will be here between [id number]
--- NOTE | 2021-02-17 15:49 | RAD_ITS ---
EXAM: XR CHEST, 1 VIEW : 1937 CLINICAL INDICATION: line placement: OG, ETT TECHNIQUE: Frontal view of the chest. This report was created using [employer] report generation technology. COMPARISON: 02/17/2021 at 0522 hrs. FINDINGS: LUNGS AND PLEURAL SPACES: There is blunting the left costophrenic angle which may represent scar or small effusion. No pneumothorax. HEART: Unremarkable. Cardiac silhouette not enlarged. MEDIASTINUM: There is a large hiatal hernia present. BONES/JOINTS: Unremarkable. SOFT TISSUES: Unremarkable. TUBES, LINES AND DEVICES: Endotracheal tube in place the distal tip 3.8 cm above the rex. RAD/Chest 1 View (Portable) IMPRESSION: 1. No change in the appearance of the chest from the reference exam. 2. Endotracheal tube in good position. 3. Large hiatal hernia. at 1653 Reported and signed by: Mina Clinton MD Electronically Signed: Mina Clinton MD at 16:51 EDT Tel , Service support ,
--- NOTE | 2021-02-17 15:58 | PCM.OP.PRO ---
Assessment & Plan Assessment/Plan (1) Junctional bradycardia: Procedure Report Date of Procedure: 02/17/21 Attempted right IJ triple-lumen catheter Consent was obtained previously from the patient's . Indication is for hemodynamic stability and IV access. Description: Area prepped and draped in a sterile fashion. Right internal jugular catheter was identified via ultrasound and was cannulated with venous access with dark nonpulsatile flow. 2 different guidewires could not be advanced and were kinked at the clavicle. Procedure was then aborted. Complications minimal blood loss 10 cc. Patient tolerated the procedure well Follow-up chest x-ray show no evidence of a pneumothorax. Procedures Hospitalists Procedures: Other Procedure - See Report ([id number])
--- NOTE | 2021-02-17 15:59 | NURSING ---
Fentanyl and Propofol increased per Dr. Rodriguez during attempt of central line placement.
--- NOTE | 2021-02-17 16:45 | NURSING ---
Leroy crouch placed for temp 95.1 core
[2021-02-17 17:04] LABS: Allen Test Positive; Base Excess -5 mmol/L (-2 to +2); Bicarbonate 22.4 mmol/L (22-26); Blood Gas Specimen Type ART; FI02 100; Mode AC; O2 Delivery Device Adult Vent; PEEP 5; PO2 402 mmHG (75-100); RR 12; SITE L Fem; SO2 100 % (95-99); Total Carbon Dioxide 24 mmol/L; Vt 400; pH 7.23 (7.35-7.45)
[2021-02-17 17:08] LABS: CPK Total, Creatine Kinase 229 U/L (26-192)
[2021-02-17 17:15] LABS: Triglycerides 91 mg/dL; Troponin-I HS 70.5 pg/mL (3.0-53.7)
--- NOTE | 2021-02-17 17:20 | NURSING ---
family refused PICC placement
--- NOTE | 2021-02-17 17:32 | PCM.HOSP.N ---
Hospitalist Note CODE STEVEN was called at 1355 and all 3 hospitals responded. By the time we had arrived to the room she had recovered her pulse. Her respiratory status was tenuous therefore she was intubated. She was initially sedated and paralyzed with etomidate and succinylcholine and then a 7.5 Georgian ET tube was placed under direct visualization the past the vocal cords. Placement was confirmed both with auscultation and CO2 monitoring. Tube was secured and she was started on propofol and fentanyl and mechanically ventilated. Chest x-ray was obtained for confirmation, ET tube is approximately 3cm north of the rex. Procedures Hospitalists Procedures: [id number] Insert Emergency Airway
--- NOTE | 2021-02-17 17:33 | NURSING ---
Family at bedside
--- NOTE | 2021-02-17 17:34 | NURSING ---
[facility] notified of patient and series of event, family at bedside.
--- NOTE | 2021-02-17 19:21 | NURSING ---
extubatd patient at 1910, placed on 2L NC, family at bedside, report given to JOSE DANIEL De Leon
--- NOTE | 2021-02-17 19:45 | NURSING ---
Pt passed at 1939. Family present at bedside.
--- NOTE | 2021-02-17 20:18 | CPS ---
Terminal extubation performed at this time per verbal physician order
--- NOTE | 2021-02-18 08:05 | PCM.DEATH ---
Preliminary Cause of Preliminary Cause of Preliminary Cause of : cardiogenic shock Date of Admission: 02/17/21 Date of : 02/17/21 Principle Diagnosis cardiogenic shock Problem List: Active and Suspected Problems (Updated 02/17/21 @ 08:48 by Tangela Levy) Syncope (Acute) Junctional bradycardia (Acute) LAZARO (acute kidney injury) (Acute) Hypotension (Acute) Hospital Course 85-year-old female presents with syncopal episode. Patient felt weak going to the restroom but then left her on the toilet. Note patient was slumped against the wall. Patient was out for period time but eventually came to. In the emergency room, patient was noted to be hypotensive and also to have a junctional bradycardia. Patient received 2 rounds of atropine which had no effect on her heart rate. Patient was confused but at baseline per her . Due to hypotension, patient was admitted to the ICU. While in the ICU patient was started on dopamine drip. Patient developed pulseless electrical activity and did have a brief run of CPR with chest compressions and 1 of epinephrine. Patient had resolution of circulation at that point time. Patient was having respiratory failure as the patient was intubated at that time. Patient continue with dopamine. Right IJ triple-lumen catheter was attempted but the guidewires kinking under the clavicle so the procedure was aborted. Patient had follow-up chest x-ray that showed no pneumothorax. Family had been been with several times and patient's initially was said DNR Comfort Care arrest but then was hesitant and then encouraged him to talk further with his daughter before the cardiac arrest. A afterwards was notified and then did speak with the rest of his family and decision was made to terminally extubate. Patient was terminally extubated and then at 1939 on February 17, 2021. Assessment & Plan Assessment/Plan (1) Syncope: QUALIFIERS: Syncope type: unspecified Qualified Code(s): R55 - Syncope and collapse (2) Junctional bradycardia: (3) LAZARO (acute kidney injury): (4) Hypotension: QUALIFIERS: Hypotension type: unspecified hypotension type Qualified Code(s): I95.9 - Hypotension, unspecified (5) Cardiogenic shock: Visit Charges Inpatient E&M: 22366 Disch Hosp
== END 2021-02-17 19:39 | DRG 308 ==
LOC: ED 05:36 → ICU 07:31
PROVIDERS: Internal Medicine Cardiovascular Disease; Emergency Provider Emergency Medicine; PCP Family Medicine
DX: R00.1 Bradycardia, unspecified (principal); E43 Unspecified severe protein-calorie malnutrition; J96.91 Respiratory failure, unspecified with hypoxia; N17.9 Acute kidney failure, unspecified; Z68.1 Body mass index [BMI] 19.9 or less, adult; I48.4 Atypical atrial flutter; I95.9 Hypotension, unspecified; I46.9 Cardiac arrest, cause unspecified; S80.812A Abrasion, left lower leg, initial encounter; W22.8XXA Striking against or struck by other objects, initial encounter; Y93.9 Activity, unspecified; Y92.9 Unspecified place or not applicable; T44.7X5A Adverse effect of beta-adrenoreceptor antagonists, initial encounter; I10 Essential (primary) hypertension; I25.10 Atherosclerotic heart disease of native coronary artery without angina pectoris; I27.21 Secondary pulmonary arterial hypertension; I48.0 Paroxysmal atrial fibrillation; M19.90 Unspecified osteoarthritis, unspecified site; Z66 Do not resuscitate; Z79.01 Long term (current) use of anticoagulants; Z85.3 Personal history of malignant neoplasm of breast; Z95.5 Presence of coronary angioplasty implant and graft; Z87.19 Personal history of other diseases of the digestive system; Z86.2 Personal history of diseases of the blood and blood-forming organs and certain disorders involving the immune mechanism; Z79.899 Other long term (current) drug therapy
CPT/HCPCS: 31500; 31720; 36415; 36600; 71045; 80048; 81001; 82550; 82803; 82962; 83880; 84478; 84484; 85025; 87070; 87086; 87205; 92950; 93005; 93306; 94002; 97802; 99285; J7030; J7050; A4216; C1751; J0330; J2405; J3010